=== PATIENT | male | born 1955 | race Caucasian/White ===

== ENCOUNTER 2016-11-11 11:05 | Inpatient (IN) | payer OTHER ==
--- NOTE | ~2016-11-11 | HP ---
History And Physical [place] [id number] [facility] [place]. [address] NAME: WALT STEVENSON : 53 STATUS : ADM IN PAT#: [id number] AGE: 61 ADM/REG DATE : 11/11/16 MR#: [id number] REPORT SERV DATE: 11/11/16 DICTATED BY: MINDA WELLER DATE: 11/11/16 REPORT STATUS : Draft TRANSCRIBED BY: MODL DATE: 11/11/16 DATE OF ADMISSION: 11/11/2016 ATTENDING PHYSICIAN: Dr. Butler. EXAMINING PHYSICIAN: Minda Weller M.D. REASON FOR ADMISSION: TIA, symptoms of right facial numbness, right hand numbness, which may be fluctuating over the last two years, acute shuffling of gait, confusion, and dysarthria earlier. The patient was seen in the emergency room by Dr. Restrepo, the neurologist, who felt tPA was not indicated. She recommended admission for observation; however, the patient does have some significant cerebrovascular disease, was recently referred to Dr. Velasquez Lilly for possible arterial endarterectomy. He was referred by Dr. Cortez, online marketing strategist with diagnostic cardiology. He has not actually seen her; however, he has had some progression of disease from 60% occlusion to a higher percentage of occlusion based on the ultrasounds that were done at [facility]. He also has a cardiomyopathy and was recently hospitalized, worked up for cardiac catheterization at [facility] by Dr. Bustos last week. Three new medications were started by Dr. Bustos including lisinopril, hydrochlorothiazide, and Plavix. Today, the patient had trouble walking with shuffling his gait, increasing dysarthria, worsen than before, numbness on the right side of his face and right side of the arm. He also has a headache that is new. He has some old right upper quadrant pain. This has been going on for the last two to three weeks. I do not know if he has been evaluated or not at previous hospitalizations at [facility]. PAST MEDICAL HISTORY: He has been hospitalized at [facility] three times in the last year, once at [facility], and this is first time here at [facility] for similar TIAs. HOME MEDICATIONS: Include the following: Aspirin 81 mg p.o. daily, atorvastatin 40 mg p.o. daily, carvedilol 12.5 mg p.o. b.i.d., clopidogrel 75 mg p.o. daily, gabapentin 400 mg p.o. b.i.d., hydrochlorothiazide 25 mg p.o. daily, isosorbide mononitrate 60 mg 1 daily, lisinopril 40 mg p.o. daily, potassium chloride SR 10 mEq p.o. daily, and fish oil 1 g b.i.d. ALLERGIES: HE CLAIMS ALLERGIES TO THE FOLLOWING MEDICATION: MORPHINE, CHOCOLATE FLAVORED MILK AND AN ADVERSE REACTION TO CODEINE IN THE PAST WELL. SOCIAL HISTORY: for seven years with present . She is from [place], [place]. He retired from the [employer] in [place], [place], and wanted to move out of [place]. He was risen from [place]. He gave up smoking about a year ago. He was a heavy drinker in the past, but has not had with an occasional beer over the last year or so. History And Physical [address] [place]. [address] NAME: WALT STEVENSON : 53 STATUS : ADM IN [facility]#: [id number] AGE: 61 ADM/REG DATE : 11/11/16 MR#: [id number] REPORT SERV DATE: 11/11/16 DICTATED BY: MINDA WELLER DATE: 11/11/16 REPORT STATUS : Draft TRANSCRIBED BY: DANIKA DATE: 11/11/16 FAMILY HISTORY: He has one grown son by previous marriage. He was from previous marriage. Strokes run in all the family on his mother side and his aunts; uncle's mothers had strokes as well. REVIEW OF SYSTEMS: He has no chest pain. He does have right upper quadrant abdominal pain, now worse with eating, but somewhat worsened with movement. He has numbness in the right side. He is unable to ascertain hot and cold and he uses left side for that, though he had a stroke affecting the left side. He has seizure disorder and is on the gabapentin for the seizures now, that occurred after the stroke two years ago. He has had no fever, chills, night sweats, melena, hematemesis, nausea, vomiting, or diarrhea. He does have unilateral weakness on the left side, but he is functional with it. He is mostly right-handed. He has had no recent fits, seizures, convulsions, unilateral weakness, nausea, vomiting, or diarrhea. The remainder of the review of systems is negative. PHYSICAL EXAMINATION: VITAL SIGNS: His blood pressure initially was 117/70 with a heart rate of 68, respiratory rate 16, oxygen saturation 92%, afebrile. HEENT: EOMI. Sclerae clear. Conjunctivae pink. NECK: No bruit. No thyromegaly. No JVD. CHEST: Clear to A and P. Tongue midline. No deviation or tremor or fasciculations. His speech is somewhat dysarthric. He does have some trouble finding words. HEART: Regular S1, S2 without murmur, gallop, or click. ABDOMEN: Soft, nontender. Bowel sounds positive. No HSM. EXTREMITIES: No edema. Distal pulses are palpable to the dorsalis pedis and posterior tibial. NEUROLOGIC: He withdraws to plantar stimulation. He has increased reflexia on the left knee jerk. There is negative Leni reflex in the left hand. DTRs are not elicitable in the left upper extremity with a blood pressure cuff in place. SKIN: Without rash, ecchymosis, or bruising. LYMPHATICS: There is no adenopathy palpable. LABORATORY DATA: 1. Portable chest x-ray showed no acute process. The CTA of the neck was done that showed no acute artifact or hemorrhage on the intracranial side. There is an old left temporal lobe infarct. There is occlusion of the left internal carotid artery 1 cm distal to its origin. He has had a prior endarterectomy on the left side with moderate stenosis of the common carotid artery at the margin of the left endarterectomy (patient does not give a history of previous carotid endarterectomy). He has calcific atherosclerotic plaque and high-grade stenosis of the right internal carotid artery. This is estimated to be greater than 90%. The external carotid arteries, vertebrals are patent. He has calcified atherosclerotic plaque of the right carotid siphon with stenosis of 50-70% with reconstitution of distal left carotid siphon from collateral flow, right to left. The anterior cerebral arteries and posterior cerebral arteries History And Physical [address] [place] [facility] [place] [address] NAME: WALT STEVENSON : 53 STATUS : ADM IN PAT#: [id number] AGE: 61 ADM/REG DATE : 11/11/16 MR#: [id number] REPORT SERV DATE: 11/11/16 DICTATED BY: MINDA WELLER DATE: 11/11/16 REPORT STATUS : Draft TRANSCRIBED BY: DANIKA DATE: 11/11/16 appear to be patent as well. 2. CT scan of the brain with stroke protocol shows old infarct in the left temporal lobe with chronic deep white matter disease and no evidence of acute infarct or hemorrhage. He was typed and screened with A positive blood. He has a hemoglobin of 13.4, hematocrit 39.9, platelet count 217,000, and INR 1.0. His CMP showed a sodium of 141, potassium 3.6, creatinine 1.2, BUN 18, glucose 153, and troponin 0.03. Liver tests were normal. His glucose is 151 on initial admission. ASSESSMENT: 1. Cerebrovascular disease appears to be significant. Previous carotid endarterectomy from x-ray on the left side with a significant stenosis greater than 90% on the right side. Dr. Lilly was consulted for vascular surgical intervention. The patient's symptoms are on the right side with facial numbness and right hand numbness. I am going to go ahead and start heparin. He does have a cardiomyopathy as well. He may have some sort of embolic phenomenon that is aggravating this. We will consult Dr. Bustos regarding this. 2. Cardiomyopathy, followed by Dr. Bustos with recent cardiac catheterization. 3. Dysarthria, headache, right-sided facial numbness and shuffling gait, sign and symptom complex suspicious for acute neurologic event now with known significant cerebrovascular disease. 4. Remote cerebrovascular accident with left hemiparesis. Appears to have left temporal involvement in the past with deep white matter disease. 5. Headache. 6. Right upper quadrant abdominal pain, three weeks' duration without nausea and vomiting. Consider ultrasound of the gallbladder at some point. 7. Seizures, on Neurontin after the stroke. 8. Ischemic cardiomyopathy. 9. History of hypertension. PLAN: 1. I have discussed with the patient any advanced directives he may have, initially he did not want to have aggressive heroic supportive therapy in the event of a natural . He will allow that on second thought now. So, the patient is a full code. We will admit him to [address] [place] [address]. There is no ICU beds available. Dr. Restrepo's recommendations are not available at this time. She will be consulted as well as Dr. Lilly and Dr. Bustos. 2. Starting heparin will allow permissive hypertension to let the blood pressure be above 130-140. He was recently started on lisinopril. We may need to withhold this as the low blood pressure may be having a perfusion problem causing the signs and symptoms. He also had Dr. Cortez increased his isosorbide mononitrate to 30-60 mg daily yesterday. 3. Incomplete database. We will request charts from [facility] as this is his first interaction here at [facility]. DB/MODL History And Physical [address] [place]. [address] NAME: WALT STEVENSON : 53 STATUS : ADM IN PAT#: [id number] AGE: 61 ADM/REG DATE : 11/11/16 MR#: [id number] REPORT SERV DATE: 11/11/16 DICTATED BY: MINDA WELLER DATE: 11/11/16 REPORT STATUS : Draft TRANSCRIBED BY: DANIKA DATE: 11/11/16 Minda Weller M.D. / [id number] CC: Mariposa Zhong M.D. Dannis Hood Jr., M.D.
--- NOTE | ~2016-11-11 | OP ---
Record Of Operation [facility] [address] [place]. [address] NAME: WALT STEVENSON : 53 STATUS : ADM IN PAT#: [id number] AGE: 61 ADM/REG DATE : 11/11/16 MR#: [id number] REPORT SERV DATE: 11/16/16 DICTATED BY: JONATHAN TOLEDO DATE: 11/15/16 REPORT STATUS : Draft TRANSCRIBED BY: MODL DATE: 11/15/16 DATE OF PROCEDURE: 11/15/2016 PREOPERATIVE DIAGNOSIS: High-grade right carotid stenosis with stroke-type symptoms. POSTOPERATIVE DIAGNOSIS: High-grade right carotid stenosis with stroke-type symptoms. PROCEDURE: Right carotid endarterectomy. SURGEON: Jonathan Toledo M.D. ASSISTANTS: Riana and Rdaha. ANESTHESIA: General. COMPLICATIONS: None. BLOOD LOSS: 100. HISTORY: The patient is a 61-year-old male, who presented with stroke-type symptoms. He was noted to have chronic occlusion of his left internal carotid artery, high-grade stenosis of the right internal carotid artery. Based on this, it was felt to benefit from right carotid endarterectomy. This was discussed in detail with the patient and family expressed understanding and desired to proceed. DESCRIPTION OF PROCEDURE: The patient was taken to the operating room and placed in the supine position. He was given general anesthesia without complications. Roll was placed under his shoulders. Head was turned to the left. An incision was created on the anterior border of the sternocleidomastoid muscle taking care to be more than one fingerbreadth away from the angle of the mandible. Bovie cautery was used to dissect through subcutaneous tissues and platysma. The external jugular vein was identified and ligated with silk ties and divided. Dissection was continued on the anterior border of the sternocleidomastoid muscle exposing the internal jugular vein. The common facial vein was identified. This was ligated with 2-0 silk ties and divided. Continued dissection was performed. The vagus nerve was identified and preserved. The common carotid artery was identified, freed circumferentially, and isolated with a vessel loop. The patient was given 3000 units of heparin as he was on a heparin drip until he arrived in the operating room. Continued dissection was performed to free the external carotid artery circumferentially. The internal carotid artery was freed circumferentially beyond the area of disease and isolated with a Vesseloop as well. After more than three minutes of heparinization, the internal carotid artery was controlled with a vessel loop followed by the common carotid artery and external carotid artery. An 11 blade was used to create an arteriotomy and was extended longitudinally onto the internal carotid artery beyond the area of disease. A 12 shunt was placed into the internal carotid artery. Once back bleeding was noted, this was placed into the common carotid artery restoring flow of the brain. Endarterectomy was performed in a standard fashion with feathering of the proximal and distal end points and eversion Record Of Operation [facility] [address] [facility] [place]. [address] NAME: WALT STEVENSON : 53 STATUS : ADM IN PAT#: [id number] AGE: 61 ADM/REG DATE : 11/11/16 MR#: [id number] REPORT SERV DATE: 11/16/16 DICTATED BY: JONATHAN TOLEDO DATE: 11/15/16 REPORT STATUS : Draft TRANSCRIBED BY: DANIKA DATE: 11/15/16 endarterectomy on the external carotid artery. The endarterectomy site was copiously irrigated, all loose debris was removed. Once this was felt to be adequate, the arteriotomy was closed using 8 x 80 bovine pericardial patch and running 6-0 Prolene suture. Prior to completion, the shunt was pulled from the lateral aspect. The internal and external carotid arteries were back bled. The common carotid artery was flushed. The endarterectomy site was copiously irrigated. The closure was completed and flow was restored first to the external carotid artery, then after more than five heartbeats to the internal carotid artery. Bleeding points along the closure were controlled with additional 6-0 Prolene suture. There were normal Doppler signals in the common carotid, external carotid, and internal carotid arteries. Once hemostasis was assured, fibrillar was placed over the patch closure. The deep tissues and platysma were closed with 2-0 Vicryl suture. The skin was closed with 4-0 Monocryl suture and Dermabond dressing applied. The patient tolerated the procedure well. He will be extubated in the operating room and if neurologically intact, taken to the recovery room for continued care. GAMALIEL/DANIKA Jonathan Toledo M.D. / [id number] CC: Alfonso Gooden M.D.
--- NOTE | ~2016-11-11 | CN ---
Consultation Report [facility] [address] [place]. [address] NAME: WALT STEVENSON : 53 STATUS : ADM IN PAT#: [id number] AGE: 61 ADM/REG DATE : 11/11/16 MR#: [id number] REPORT SERV DATE: 11/12/16 DICTATED BY: GABRIEL BUSTOS JR. DATE: 11/12/16 REPORT STATUS : Draft TRANSCRIBED BY: DANIKA DATE: 11/12/16 CONSULTATION DATE OF CONSULTATION: REFERRING PHYSICANS: Dr. Alfonso Gooden and Dr. Ozzie Whitaker. INDICATION FOR CONSULTATION: History of hypertensive cardiomyopathy evaluation prior to vascular surgical procedure, history of TIA. HISTORY OF PRESENT ILLNESS: The patient is a 61-year-old white male, recently admitted for transient ischemic attacks, found to have an elevated troponin, for which nuclear stress test was negative. However, the patient developed substernal chest pain, for which he was transferred to [facility], cardiac catheterization was performed at that time, for which the patient was found to have non-flow limiting epicardial coronary artery disease with luminal irregularities only, moderate LV systolic dysfunction with ejection fraction estimated at 38% to 41%, hypertensive cardiomyopathy. He was medically managed and cleared for vascular procedure, however he re-presented with TIA like symptoms and now is being evaluated for carotid endarterectomy. He has had no recent anginal symptoms, although he is mildly to moderately hypertensive. Recent echo was notable for an ejection fraction of 41% with mild regional wall motion abnormalities, which were not noted on ventriculography. The patient this morning denies chest pain, denies angina, and has had no overt dyspnea. There are no overt symptoms of orthopnea, PND, pedal edema. He is supine in the bed and otherwise appears well. ALLERGIES: THOSE INCLUDING CODEINE AND MORPHINE. MEDICATIONS AT HOME: Aspirin 81 mg daily, atorvastatin 40 mg at bedtime, carvedilol 12.5 mg p.o. b.i.d., clopidogrel 75 mg daily, Neurontin 400 mg b.i.d., hydrochlorothiazide 25 mg daily, Imdur 60 mg daily, Prinivil 40 mg daily, potassium 10 mEq daily, fish oil daily. PAST MEDICAL HISTORY: Notable for history of hypertensive cardiomyopathy with no flow limiting epicardial coronary artery disease as above, history of dyslipidemia, hypertension, seizure disorder, history of prior CVA with right hand residual hypoesthesia, history of total occlusion of the left internal carotid, history of occlusion of the right subclavian, history of unspecified psychiatric disorder. PAST SURGICAL HISTORY: Notable for prior cardiac catheterization. SOCIAL HISTORY: Notable for absence of current known tobacco or ethanol use. Although, he did smoke cigarettes about a year ago. He denies any illicit drug use. Consultation Report [address] [place]. [address] NAME: WALT STEVENSON : 53 STATUS : ADM IN PAT#: [id number] AGE: 61 ADM/REG DATE : 11/11/16 MR#: [id number] REPORT SERV DATE: 11/12/16 DICTATED BY: GABRIEL BUSTOS JR. DATE: 11/12/16 REPORT STATUS : Draft TRANSCRIBED BY: DANIKA DATE: 11/12/16 FAMILY HISTORY: Notable for heart disease and CVA. PHYSICAL EXAMINATION: VITAL SIGNS: Blood pressure is 185/72, pulse is 70 and regular, respirations 14. The patient is afebrile. HEENT: Unremarkable. NECK: Supple without jugular venous distention or carotid bruits. CARDIOVASCULAR SYSTEM: Regular rhythm. LUNGS: Clear. ABDOMEN: Benign without hepatomegaly. EXTREMITIES: 1+ with no pedal edema. NEUROLOGIC: He is grossly intact. LABORATORY DATA: EKG is notable for sinus rhythm with ventricular rate of 60 beats per minute with LVH and lateral T-wave inversion. Other laboratories are H and H of 13.4 and 39.9, white count of 7.8, and platelet count of 217,000. Sodium 141, potassium 3.6, chloride of 103, CO2 of 28, BUN 18, creatinine 1.2, glucose of 153. Liver enzymes are negative. Chest x-ray reported within acceptable limits. IMPRESSION: 1. A 61-year-old white male with known atherosclerotic cerebrovascular disease, prior cerebrovascular accident, admitted with transient ischemic attack, cerebrovascular accident symptoms. 2. Hypertensive cardiomyopathy. 3. History of prior tobacco use, history of occasional ethanol use. 4. Known chronic EKG changes as noted above. PLANS AND RECOMMENDATIONS: 1. Current cardiac condition satisfactory for planned procedure, may withhold aspirin and Plavix if necessary. Would continue heparin at this time. Would continue electrolyte protocol and monitor fluid intake. 2. We will follow along with you if needed. JEAN-CLAUDE/DANIKA Gabriel Bustos Jr., M.D. / [id number] CC: Mariposa Zhong M.D.
--- NOTE | ~2016-11-11 | DS ---
Discharge Summary [facility] [address] [place]. [address] NAME: WALT STEVENSON : 53 STATUS : DIS IN PAT#: [id number] AGE: 61 ADM/REG DATE : 11/11/16 MR#: [id number] REPORT SERV DATE: 11/22/16 DICTATED BY: NOEMÍ BANKS DATE: 11/19/16 REPORT STATUS : Draft TRANSCRIBED BY: MODL DATE: 11/19/16 ADMISSION DATE: 11/11/2016 DISCHARGE DATE: 11/19/2016 CONSULTANTS: Dr. Marielle Restrepo and Dr. Jennifer Tello, Neurology; Dr. Nadine Bustos, Cardiology; Dr. Jonathan Toledo, Vascular Surgery. DISCHARGE DIAGNOSES: 1. Transient ischemic attack versus amyloid angiopathy episodes. 2. Acute kidney injury. 3. Severe peripheral arterial disease with totally occluded left carotid and 90% right internal carotid and previous axillary to axillary bypass. 4. 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 5. Nonischemic chronic congestive heart failure with ejection fraction 38%. 6. Hypertension. 7. Extended-spectrum beta-lactamase Escherichia coli urinary tract infection. 8. Suspected sleep apnea. 9. Previous smoker. 10.Previous heavy alcohol use. 11.Transient elevation of liver enzymes, resolved. 12.Mild normocytic anemia. 13.Seasonal allergies. HISTORY: This patient presented to the hospital at [facility] with complaints of numbness that was involving the right face, right hand, and right leg. He said he had prior stroke, which had left him with some right-sided numbness and headache that were just a bit different than what he had before. As a result of this, he presented to the emergency room at [facility]. Neurologist, Dr. Restrepo was called to see the patient. She did not feel he was a candidate for tPA and he was referred to our team for inpatient care. Imaging initially with a stroke protocol revealed old infarct left temporal lobe, mild atrophy, and chronic white matter ischemic changes. No evidence for an acute stroke. CTA of the neck and brain on 11/11/2016 revealed no acute infarction or hemorrhage, old left temporal lobe infarction, occlusion of the left internal carotid artery 1 cm distal to the origin. The patient had had previous endarterectomy on the left. There was also moderate stenosis of the common carotid at the inferior margin of the endarterectomy site. There was atherosclerotic plaque with a 90% stenosis of the right internal carotid artery. External carotid arteries and vertebral arteries were patent. There was a plaque of the right carotid siphon with an estimated 50% to 70% stenosis with reconstruction of the distal left carotid siphon from collateral flow. The anterior cerebral arteries, middle cerebral arteries, posterior cerebral arteries, and basilar arteries were patent. Chest x-ray on admission, no acute abnormality. The patient was admitted with the TIA stroke order set. He was seen by Cardiology, Dr. Bustos. Troponins were normal. Dr. Bustos's notes indicate the patient had recent hospitalization at [facility] and he brought copies of records showing a catheterization on 10/08/2016 at [facility], minor nonobstructive coronary Discharge Summary [address] [address] NAME: WALT STEEVNSON : 53 STATUS : DIS IN PAT#: [id number] AGE: 61 ADM/REG DATE : 11/11/16 MR#: [id number] REPORT SERV DATE: 11/22/16 DICTATED BY: NOEMÍ BANKS DATE: 11/19/16 REPORT STATUS : Draft TRANSCRIBED BY: DANIKA DATE: 11/19/16 artery disease, but left ventricular ejection fraction 38%. On 11/13/2016, the patient was complaining of worsening headache and numbness. A rapid response was called. Dr. Restrepo saw the patient again, and the patient had brain CT protocol at that time showing no acute changes. Also had orders for MRI of the brain later on 11/16/2016, which revealed extensive deep white matter changes bilaterally with microbleeds and cortical infarction in the left middle cerebral artery suggesting amyloid angiopathy. No acute infarction. The patient was seen by vascular surgeon, Dr. Jonathan Toledo, who felt he needed a right carotid endarterectomy. This was performed on 11/15/2016. On 11/16/2016, the patient complained of new left-sided numbness, some slowing of mentation and language. No focal deficit motor suarez was noted. Imaging done at that time included a repeat CTA of the brain showing surgical changes on the right side with recent right carotid endarterectomy. The right carotid artery was patent with no significant stenosis. There was a chronic occlusion of the left internal carotid. MRI of the brain at that time revealed no acute infarction. 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 No CT evidence of pulmonary embolism. No thoracic aortic aneurysm or dissection was noted. Neurology thought that possibly the patient's episodes, which continued intermittently of left-sided numbness might be related to amyloid neurologic spells, so they have begun him on Keppra for this. Because of the concern that he has underlying amyloid angiopathy, we have decided to try to use the least amount of anticoagulation and least amount of anti-platelet agent, but still to try to help reduce risk of ischemic stroke, therefore, we are going to just go with low- dose aspirin and no Plavix. At the time of discharge, he still has the numbness on that left foot, left side of his face, little bit on his left arm. He is ambulatory, swallowing well, speaking well. Physical Therapy felt he did not need any further interventions. Neurology recommended the Keppra and follow up with [facility] here in [facility]. Vascular, Dr. Toledo wants to see him in two weeks. DISCHARGE MEDICATIONS: Aspirin 81 mg two tablets daily, Lipitor 40 mg at bedtime, Coreg 12.5 mg b.i.d., Plavix has been stopped, Flonase nasal spray daily, gabapentin 400 mg p.o. b.i.d., Imdur 60 mg daily, Keppra 750 mg p.o. b.i.d., Claritin 10 mg daily, Promega over the counter twice a day, Tylenol 650 q.6 hours p.r.n. pain, [place] 5/325 q.4 hours p.r.n. pain #10 prescribed no refill, KCl 10 mEq daily, hydrochlorothiazide half of a 25 mg tablet daily, Norvasc 5 mg daily for his blood pressure and we are stopping his lisinopril. Holding the lisinopril at this point because he did have acute kidney injury while he was here. The patient did have some dysuria and urinalysis was abnormal suggesting infection. His urine cultures grew out ESBL E coli. The patient was treated with oral fosfomycin and symptoms improved. This will need longitudinal followup. Discharge Summary [facility] [address] [place]. [address] NAME: WALT STEVENSON : 53 STATUS : DIS IN PAT#: [id number] AGE: 61 ADM/REG DATE : 11/11/16 MR#: [id number] REPORT SERV DATE: 11/22/16 DICTATED BY: NOEMÍ BANKS DATE: 11/19/16 REPORT STATUS : Draft TRANSCRIBED BY: MODL DATE: 11/19/16 He also had some seasonal allergies with sneezing, coughing that is better with Flonase and Claritin. The patient has moved recently to the area. He states his has chosen a PCP for him, he just does not know the name, but he will follow up with that PCP within the next week or so. He is to see Vascular Surgery, Dr. Jonathan Toledo in two weeks and [facility] in four to six weeks[address]. Nadine Bustos of Cardiology as per prior recommendations. I spent 39 minutes today with the patient and with discharge planning. RSG/DANIKA Noemí Banks M.D. / [id number] CC: Mariposa Stratton M.D. Dannis Hood Jr., M.D. [facility]
--- NOTE | ~2016-11-11 | CN ---
Consultation Report [facility] [address] [place]. [address] NAME: WALT STEVENSON : 53 STATUS : ADM IN PAT#: [id number] AGE: 61 ADM/REG DATE : 11/11/16 MR#: [id number] REPORT SERV DATE: 11/11/16 DICTATED BY: MARIELLE RESTREPO DATE: 11/11/16 REPORT STATUS : Draft TRANSCRIBED BY: DANIKA DATE: 11/11/16 NEUROLOGICAL EVALUATION DATE OF CONSULTATION: 11/11/2016 REASON FOR NEUROLOGICAL EVALUATION/CONSULTATION: Neurology evaluation, Code Stroke. LOCATION OF THE PATIENT: Emergency room, bed 3. HISTORY OF PRESENT ILLNESS: This is a 61-year-old white male, with known previous history of CVA, and history of left carotid endarterectomy, who presented to the emergency room 2-1/2 hours after onset of? right facial numbness which was intermittent, associated with a headache, and some as per patient "delay in speech." The patient was able to provide history without any difficulty in expressing himself. The patient appeared anxious stated that he has had strokes before and there is a strong family history of strokes on his mother's side. The patient had left carotid endarterectomy performed several years ago in [place], [place]. MEDICATIONS: The patient's current medications include aspirin 81 mg and Plavix 75 mg p.o. daily. FAMILY HISTORY: Significant history of coronary artery disease and stroke in patient's relatives on mother's side. SOCIAL HISTORY: The patient stopped smoking and drinking alcohol approximately a year ago. He is . He has two children. ALLERGIES: CODEINE AND MORPHINE. REVIEW OF SYSTEMS: The patient stated that he has had intermittent headaches since his stroke. The patient also as per patient's snores a great deal and has daytime somnolence. In the past, the patient was diagnosed with obstructive sleep apnea, however, stopped using his CPAP and has been noncompliant. The rest of review of systems, the patient denied difficulty with his vision, chewing, or swallowing. Denied weakness or numbness involving his extremities. He stated that the right side of his face was tingling intermittently. The patient stated that he had to be helped to walk to the stretcher, however, as per nursing staff, the patient had no difficulty ambulating or transferring, as per my observation from the CT table to the stretcher. PHYSICAL EXAMINATION: GENERAL: The patient is well-developed, well-nourished, did not appear in acute distress. Mallampati class 3 to 4 airway. VITAL SIGNS: Show blood pressure of 118/60, pulse was 72 and regular, respirations 16, Consultation Report [facility] [address] [place]. [address] NAME: WALT STEVENSON : 53 STATUS : ADM IN PAT#: [id number] AGE: 61 ADM/REG DATE : 11/11/16 MR#: [id number] REPORT SERV DATE: 11/11/16 DICTATED BY: MARIELLE RESTREPO DATE: 11/11/16 REPORT STATUS : Draft TRANSCRIBED BY: DANIKA DATE: 11/11/16 temperature afebrile. HEAD AND NECK: Showed him to be normocephalic. There was no evidence of trauma. Auscultation of the neck showed questionable bruit on the right. The patient is status post left carotid endarterectomy. HEART: Auscultation of the heart regular S1 and S2. I did not appreciate any murmurs or rubs. ABDOMEN: Soft and nontender. EXTREMITIES: Showed no clubbing or cyanosis. There is no peripheral edema. SKIN: Clear. NEUROLOGIC EXAMINATION: The patient was alert, oriented to self, time, and place. He was able to provide history without any difficulty. Appeared anxious. Complained of a headache. Stated that he was allergic to morphine and codeine, however can take Demerol for his headache. The patient's speech was fluent. There was no evidence of aphasia or dysarthria. Thought content and mood were appropriate. Cranial nerve examination 2 through 12: Visual gomez on confrontation showed no evidence of visual field cuts and were normal. Funduscopic exam show no evidence of papilledema or hemorrhages. Extraocular movements were full. There was no nystagmus. No limitation of upward or downward gaze was noted. Motor exam: Muscle bulk and tone was normal. Strength was 5/5 throughout. Deep tender reflexes were symmetrical 1/2. Cerebellar exam on eotams-cc-arqs, fhhr-yx-aorj, and rapid alternating movements appeared within normal. LABORATORY AND DIAGNOSTIC DATA: CBC with differential, WBC count 7.8, hemoglobin 13.4, hematocrit 39.9, platelet count 217,000, normal differential, PTT 33.7. Comprehensive metabolic; sodium 141, potassium 3.6, chloride 103, BUN 18, creatinine 1.2, GFR 64, glucose 153, troponin 0.03. Glucose on admission was 151. CT scan of the head on admission was reviewed and showed evidence of the left MCA distribution, area of probable old stroke involving temporal region, insular cortex of the temporal lobe. There was no evidence of intraparenchymal hemorrhage. The rest of the study showed questionable subacute infarct in the right MCA territory, which appeared to be small, and subacute versus chronic. CTA of the neck and brain showed no acute infarct or hemorrhage, old left temporal lobe infarct, occlusion of the left MCA 1 cm distal to its origin. The patient had prior endarterectomy on the left. There is a moderate stenosis of the CCA at the inferior margin of the endarterectomy site. 1. Calcified atherosclerotic plaque with high-grade stenosis of the right ICA that is estimated to be greater than 90%. 2. External carotid arteries and vertebral arteries were patent. 3. Calcified atherosclerotic plaque of the right carotid siphon with an estimated stenosis of 50% to 70%. There is reconstruction of the distal left carotid siphon from collateral flow. 4. The anterior cerebral arteries, middle cerebral arteries, posterior cerebral arteries, and basilar arteries were patent. The patient's NIH stroke scale calculated score was 0. IMPRESSION: 1. Not clear whether the patient is having stroke in evolution versus transient ischemic Consultation Report [address] [place]. [address] NAME: WALT STEVENSON : 53 STATUS : ADM IN [facility]#: [id number] AGE: 61 ADM/REG DATE : 11/11/16 MR#: [id number] REPORT SERV DATE: 11/11/16 DICTATED BY: MARIELLE RESTREPO DATE: 11/11/16 REPORT STATUS : Draft TRANSCRIBED BY: MODL DATE: 11/11/16 attack. The patient has markedly increased risk of a stroke, with 90% occluded right internal carotid artery. However, his symptoms pertain to the left MCA perhaps coming from the area of damage noted on the CT of the head. The patient may have sensory seizures as a result of old stroke affecting the left temporal lobe. We would recommend not to use tPA in view of very minor symptoms that are not clear, cracked, and suggestive of ongoing stroke, and because the large area of encephalomalacia was seen in the left MCA territory, that would constitute an area where the patient potentially can bleed into. 2. We would recommend monitoring the patient in the IMCU with continuous neuro checks, vital signs, and NIH scale stroke evaluation every one to two hours. If patient's symptoms worsen then the patient needs to be transferred to a facility that can urgently address his symptoms, however, for now we will discuss with our vascular surgery person on-call and request a consultation for this patient. Continue aspirin and Plavix. Increase aspirin to 325 mg p.o. daily, statins, stroke education, fall prevention, PT, OT, to evaluate the patient. The patient has signs and symptoms of obstructive sleep apnea. Mallampati class 3 to 4 airway which increases his risk of having obstructive sleep apnea. The patient should have re-evaluation and importance of using CPAP in patients who have obstructive sleep apnea discussed. The increased risk of stroke as a result of not treated sleep apnea was also stressed to the patient. Past history of tobacco use. The patient stop smoking a year ago. Significant arthrosclerotic disease, status post left endarterectomy. 3. We will monitor for any cardiac abnormalities. Echocardiogram and Cardiology consultation if needed. Continue telemetry. Continue stroke orders. Thank you for allowing us to participate in this patient's care. FELISA/DANIKA Marielle Restrepo MD / [id number] CC: Alfonso Gooden M.D.
[2016-11-11 11:33] LABS: BASOPHILS 0.3 %; BASOPHILS ABSOLUTE 0.02 10/3/uL (0.0-0.16); EOSINOPHILS 1.8 %; EOSINOPHILS ABSOLUTE 0.14 10/3/uL (0.0-0.53); ER CBC TAT 0 Hrs 03 Mins; HEMATOCRIT 39.9 % (40.0-51.0); HEMOGLOBIN 13.4 g/dL (13.6-17.8); IMMATURE GRANULOCYTES 0.3 %; IMMATURE GRANULOCYTES ABSOLUTE 0.02 10/3/uL (0.0-0.11); LYMPHOCYTES 19.1 %; LYMPHOCYTES ABSOLUTE 1.49 10/3/uL (0.67-4.30); MEAN CORPUS HGB CONC 33.6 g/dL (32.0-36.0); MEAN CORPUSCULAR HEMOGLOB 28.4 pg (26.0-34.0); MEAN CORPUSCULAR VOLUME 84.5 fL (80-100); MEAN PLATELET VOLUME 10.5 fL (9.2-13.0); MONOCYTES 5.1 %; NEUTROPHILS 73.4 %; NEUTROPHILS ABSOLUTE 5.75 10/3/uL (2.02-8.40); PLATELET COUNT 217 10/3/uL (150-400); RBC DISTRIBUTION WIDTH 13.1 % (12.0-16.0); RED CELL COUNT 4.72 10/6/uL (4.7-6.1); WHITE BLOOD CELLS 7.8 10/3/uL (4.5-10.5)
[2016-11-11 11:34] LABS: MANUAL DIFF NO %
[2016-11-11 11:50] LABS: A/G RATIO 1.3 (0.7-1.9); ALBUMIN 3.9 G/DL (3.5-5.0); ALKALINE PHOSPHATASE 73 U/L (45-117); BUN (BLOOD UREA NITROGEN) 18 MG/DL (6-23); CALCIUM, SERUM 9.6 MG/DL (8.5-10.4); CHLORIDE, SERUM 103 MMOL/L (96-112); CO2 (CARBON DIOXIDE) 28 MMOL/L (24-34); GFR AFRICAN AMERICAN 75 ML/MIN (>=60); GFR NON AFRICAN AMERICAN 64 ML/MIN (>=60); GLOBULIN 3.1 G/DL (2.5-4.1); GLUCOSE, SERUM 153 MG/DL (60-99); POTASSIUM, SERUM 3.6 MMOL/L (3.5-5.3); SGOT(AST) 13 U/L (5-40); SGPT(ALT) 21 U/L (5-65); SODIUM, SERUM 141 MMOL/L (135-148); TOTAL BILIRUBIN 0.5 MG/DL (0-1.2); TROPONIN I 0.03 NG/ML (<0.05)
[2016-11-11 11:56] LABS: INTERNATIONAL NORMAL RATI 1.1 UNITS (-); PARTIAL THROMBO TIME 33.7 SEC (22.5-37.2); PROTIME (NOT ORD) 13.8 SEC (12.0-14.5)
[2016-11-11] MEDS ORDERED: KDUR10 PO (12:07)
[2016-11-11] MEDS ORDERED: NEUR400 PO (12:07)
[2016-11-11] MEDS ORDERED: IMDUR60 PO (12:07)
[2016-11-11] MEDS ORDERED: LIPITOR40 PO (12:07)
[2016-11-11] MEDS ORDERED: ASAB PO (12:07)
[2016-11-11] MEDS ORDERED: PLAVIX PO (12:08)
[2016-11-11] MEDS ORDERED: COREG12 PO (12:08)
[2016-11-11] MEDS ORDERED: HCTZ12.5 (12:08)
[2016-11-11] MEDS ORDERED: LISINOPRIL40 MG PO (12:08)
[2016-11-11] MEDS ORDERED: FISH OIL PO (12:09)
[2016-11-11 16:41] LABS: CHOL/HDL RATIO(NOT ORDER) 4.2 (0-5); CHOLESTEROL 185 MG/DL (< 200); HDL CHOLESTEROL 44 MG/DL (> 39); LDL CHOLESTEROL 107 MG/DL (< 130); NON-HDL CHOLESTEROL 141 MG/DL (< 160); TRIGLYCERIDE 173 MG/DL (< 150)
[2016-11-11 21:21] LABS: CPK 168 U/L (0-200); TROPONIN I 0.03 NG/ML (<0.05)
[2016-11-11 21:24] LABS: CK-MB 3.7 NG/ML
[2016-11-11 22:47] LABS: ASCORBIC ACID (UR NOT ORDER) NEG (NEG); BILIRUBIN, URINE NEGATIVE (NEG); KETONE, URINE NEGATIVE (NEG); LEUKOCYTE ESTERASE(NOT OR LARGE (NEG); WBC (NOT ORDERED) (RFLEX) 86 (0-5)
[2016-11-12 06:06] LABS: TROPONIN I 0.03 NG/ML (<0.05)
[2016-11-12 06:09] LABS: CK-MB 3.3 NG/ML; CPK 148 U/L (0-200)
[2016-11-12 12:03] LABS: CK-MB 3.2 NG/ML; CPK 151 U/L (0-200); TROPONIN I 0.03 NG/ML (<0.05)
[2016-11-12 12:16] LABS: ASCORBIC ACID (UR NOT ORDER) NEG (NEG); BILIRUBIN, URINE NEGATIVE (NEG); KETONE, URINE NEGATIVE (NEG); LEUKOCYTE ESTERASE(NOT OR LARGE (NEG); WBC (NOT ORDERED) (RFLEX) 75 (0-5)
[2016-11-12 19:55] LABS: CPK 139 U/L (0-200); TROPONIN I 0.03 NG/ML (<0.05)
[2016-11-12 19:58] LABS: CK-MB 2.7 NG/ML
[2016-11-13 06:42] LABS: BASOPHILS 0.3 %; BASOPHILS ABSOLUTE 0.02 10/3/uL (0.0-0.16); HEMOGLOBIN 12.4 g/dL (13.6-17.8); IMMATURE GRANULOCYTES 0.2 %; IMMATURE GRANULOCYTES ABSOLUTE 0.01 10/3/uL (0.0-0.11); LYMPHOCYTES 28.5 %; LYMPHOCYTES ABSOLUTE 1.89 10/3/uL (0.67-4.30); MEAN CORPUS HGB CONC 32.6 g/dL (32.0-36.0); MEAN CORPUSCULAR HEMOGLOB 27.6 pg (26.0-34.0); MEAN CORPUSCULAR VOLUME 84.6 fL (80-100); MEAN PLATELET VOLUME 10.5 fL (9.2-13.0); MONOCYTES 8.3 %; MONOCYTES ABSOLUTE 0.55 10/3/uL (0.21-1.20); NEUTROPHILS 59.7 %; NEUTROPHILS ABSOLUTE 3.96 10/3/uL (2.02-8.40); PLATELET COUNT 199 10/3/uL (150-400); RBC DISTRIBUTION WIDTH 13.3 % (12.0-16.0); RED CELL COUNT 4.49 10/6/uL (4.7-6.1); WHITE BLOOD CELLS 6.6 10/3/uL (4.5-10.5)
[2016-11-13 06:48] LABS: BUN (BLOOD UREA NITROGEN) 17 MG/DL (6-23); CALCIUM, SERUM 8.9 MG/DL (8.5-10.4); CHLORIDE, SERUM 103 MMOL/L (96-112); CO2 (CARBON DIOXIDE) 29 MMOL/L (24-34); CREATININE 1.07 MG/DL (0.70-1.30); GFR AFRICAN AMERICAN 86 ML/MIN (>=60); GFR NON AFRICAN AMERICAN 74 ML/MIN (>=60); GLUCOSE, SERUM 106 MG/DL (60-99); POTASSIUM, SERUM 3.5 MMOL/L (3.5-5.3); SODIUM, SERUM 144 MMOL/L (135-148)
[2016-11-13 06:49] LABS: MANUAL DIFF NO %
[2016-11-13 06:52] LABS: INTERNATIONAL NORMAL RATI 1.1 UNITS (-)
[2016-11-13 13:54] LABS: BASOPHILS 0.4 %; BASOPHILS ABSOLUTE 0.02 10/3/uL (0.0-0.16); EOSINOPHILS 3.8 %; EOSINOPHILS ABSOLUTE 0.21 10/3/uL (0.0-0.53); HEMATOCRIT 37.2 % (40.0-51.0); HEMOGLOBIN 12.2 g/dL (13.6-17.8); IMMATURE GRANULOCYTES 0.2 %; IMMATURE GRANULOCYTES ABSOLUTE 0.01 10/3/uL (0.0-0.11); LYMPHOCYTES 32.6 %; LYMPHOCYTES ABSOLUTE 1.81 10/3/uL (0.67-4.30); MEAN CORPUS HGB CONC 32.8 g/dL (32.0-36.0); MEAN CORPUSCULAR HEMOGLOB 28.3 pg (26.0-34.0); MEAN CORPUSCULAR VOLUME 86.3 fL (80-100); MEAN PLATELET VOLUME 10.3 fL (9.2-13.0); MONOCYTES ABSOLUTE 0.39 10/3/uL (0.21-1.20); NEUTROPHILS ABSOLUTE 3.12 10/3/uL (2.02-8.40); PLATELET COUNT 198 10/3/uL (150-400); RBC DISTRIBUTION WIDTH 12.9 % (12.0-16.0); RED CELL COUNT 4.31 10/6/uL (4.7-6.1); WHITE BLOOD CELLS 5.6 10/3/uL (4.5-10.5)
[2016-11-13 13:58] LABS: MANUAL DIFF NO %
[2016-11-13 14:05] LABS: A/G RATIO 1.1 (0.7-1.9); ALBUMIN 3.2 G/DL (3.5-5.0); ALKALINE PHOSPHATASE 62 U/L (45-117); BUN (BLOOD UREA NITROGEN) 16 MG/DL (6-23); CALCIUM, SERUM 8.5 MG/DL (8.5-10.4); CHLORIDE, SERUM 102 MMOL/L (96-112); CO2 (CARBON DIOXIDE) 29 MMOL/L (24-34); GFR AFRICAN AMERICAN 75 ML/MIN (>=60); GFR NON AFRICAN AMERICAN 64 ML/MIN (>=60); GLOBULIN 2.9 G/DL (2.5-4.1); GLUCOSE, SERUM 126 MG/DL (60-99); POTASSIUM, SERUM 3.7 MMOL/L (3.5-5.3); SGOT(AST) 12 U/L (5-40); SGPT(ALT) 17 U/L (5-65); SODIUM, SERUM 142 MMOL/L (135-148); TOTAL BILIRUBIN 0.3 MG/DL (0-1.2); TOTAL PROTEIN 6.1 G/DL (6.0-8.5); TROPONIN I <0.02 NG/ML (<0.05)
[2016-11-13 14:07] LABS: INTERNATIONAL NORMAL RATI 1.1 UNITS (-); PROTIME (NOT ORD) 13.6 SEC (12.0-14.5)
[2016-11-13 14:08] LABS: PARTIAL THROMBO TIME 79.4 SEC (22.5-37.2)
[2016-11-14 02:45] LABS: BUN (BLOOD UREA NITROGEN) 16 MG/DL (6-23); CHLORIDE, SERUM 104 MMOL/L (96-112); CO2 (CARBON DIOXIDE) 30 MMOL/L (24-34); CREATININE 1.14 MG/DL (0.70-1.30); GFR AFRICAN AMERICAN 79 ML/MIN (>=60); GFR NON AFRICAN AMERICAN 69 ML/MIN (>=60); GLUCOSE, SERUM 109 MG/DL (60-99); POTASSIUM, SERUM 3.6 MMOL/L (3.5-5.3); SODIUM, SERUM 145 MMOL/L (135-148)
[2016-11-14 02:46] LABS: CALCIUM, SERUM 9.5 MG/DL (8.5-10.4)
[2016-11-15 10:01] LABS: HEMOGLOBIN 12.8 g/dL (13.6-17.8)
[2016-11-15 10:14] LABS: BUN (BLOOD UREA NITROGEN) 18 MG/DL (6-23); CALCIUM, SERUM 9.6 MG/DL (8.5-10.4); CHLORIDE, SERUM 104 MMOL/L (96-112); CO2 (CARBON DIOXIDE) 26 MMOL/L (24-34); CREATININE 1.48 MG/DL (0.70-1.30); GFR AFRICAN AMERICAN 58 ML/MIN (>=60); GFR NON AFRICAN AMERICAN 50 ML/MIN (>=60); GLUCOSE, SERUM 69 MG/DL (60-99); POTASSIUM, SERUM 4.1 MMOL/L (3.5-5.3); SODIUM, SERUM 142 MMOL/L (135-148)
[2016-11-15 19:03] LABS: TROPONIN I 0.03 NG/ML (<0.05)
[2016-11-15 19:05] LABS: CK-MB 1.9 NG/ML; CPK 93 U/L (0-200)
[2016-11-16 09:07] LABS: BASOPHILS 0.1 %; BASOPHILS ABSOLUTE 0.01 10/3/uL (0.0-0.16); EOSINOPHILS 3.6 %; EOSINOPHILS ABSOLUTE 0.24 10/3/uL (0.0-0.53); HEMOGLOBIN 12.3 g/dL (13.6-17.8); IMMATURE GRANULOCYTES 0.1 %; IMMATURE GRANULOCYTES ABSOLUTE 0.01 10/3/uL (0.0-0.11); LYMPHOCYTES 15.9 %; LYMPHOCYTES ABSOLUTE 1.07 10/3/uL (0.67-4.30); MANUAL DIFF NO %; MEAN CORPUS HGB CONC 32.4 g/dL (32.0-36.0); MEAN CORPUSCULAR HEMOGLOB 27.9 pg (26.0-34.0); MEAN CORPUSCULAR VOLUME 86.2 fL (80-100); MEAN PLATELET VOLUME 10.6 fL (9.2-13.0); MONOCYTES ABSOLUTE 0.54 10/3/uL (0.21-1.20); NEUTROPHILS 72.3 %; NEUTROPHILS ABSOLUTE 4.87 10/3/uL (2.02-8.40); PLATELET COUNT 189 10/3/uL (150-400); RBC DISTRIBUTION WIDTH 13.8 % (12.0-16.0); RED CELL COUNT 4.41 10/6/uL (4.7-6.1); WHITE BLOOD CELLS 6.7 10/3/uL (4.5-10.5)
[2016-11-16 09:13] LABS: INTERNATIONAL NORMAL RATI 1.1 UNITS (-); PARTIAL THROMBO TIME 33.9 SEC (22.5-37.2); PROTIME (NOT ORD) 14.3 SEC (12.0-14.5)
[2016-11-16 09:24] LABS: A/G RATIO 1.1 (0.7-1.9); ALBUMIN 3.4 G/DL (3.5-5.0); ALKALINE PHOSPHATASE 96 U/L (45-117); BUN (BLOOD UREA NITROGEN) 17 MG/DL (6-23); CALCIUM, SERUM 8.7 MG/DL (8.5-10.4); CHLORIDE, SERUM 100 MMOL/L (96-112); CO2 (CARBON DIOXIDE) 27 MMOL/L (24-34); GFR AFRICAN AMERICAN 68 ML/MIN (>=60); GFR NON AFRICAN AMERICAN 58 ML/MIN (>=60); GLUCOSE, SERUM 163 MG/DL (60-99); POTASSIUM, SERUM 3.9 MMOL/L (3.5-5.3); SGOT(AST) 46 U/L (5-40); SGPT(ALT) 68 U/L (5-65); SODIUM, SERUM 138 MMOL/L (135-148); TOTAL BILIRUBIN 0.7 MG/DL (0-1.2); TOTAL PROTEIN 6.4 G/DL (6.0-8.5); TROPONIN I <0.02 NG/ML (<0.05)
[2016-11-17 03:56] LABS: BASOPHILS 0.1 %; BASOPHILS ABSOLUTE 0.01 10/3/uL (0.0-0.16); EOSINOPHILS 5.4 %; EOSINOPHILS ABSOLUTE 0.36 10/3/uL (0.0-0.53); HEMOGLOBIN 11.9 g/dL (13.6-17.8); IMMATURE GRANULOCYTES 0.1 %; IMMATURE GRANULOCYTES ABSOLUTE 0.01 10/3/uL (0.0-0.11); LYMPHOCYTES 20.8 %; LYMPHOCYTES ABSOLUTE 1.39 10/3/uL (0.67-4.30); MEAN CORPUS HGB CONC 32.2 g/dL (32.0-36.0); MEAN CORPUSCULAR HEMOGLOB 28.4 pg (26.0-34.0); MEAN CORPUSCULAR VOLUME 88.3 fL (80-100); MEAN PLATELET VOLUME 10.7 fL (9.2-13.0); MONOCYTES 10.9 %; MONOCYTES ABSOLUTE 0.73 10/3/uL (0.21-1.20); NEUTROPHILS 62.7 %; NEUTROPHILS ABSOLUTE 4.18 10/3/uL (2.02-8.40); PLATELET COUNT 196 10/3/uL (150-400); RBC DISTRIBUTION WIDTH 13.7 % (12.0-16.0); RED CELL COUNT 4.19 10/6/uL (4.7-6.1); WHITE BLOOD CELLS 6.7 10/3/uL (4.5-10.5)
[2016-11-17 03:58] LABS: MANUAL DIFF NO %
[2016-11-17 04:07] LABS: BUN (BLOOD UREA NITROGEN) 16 MG/DL (6-23); CHLORIDE, SERUM 103 MMOL/L (96-112); CO2 (CARBON DIOXIDE) 32 MMOL/L (24-34); CREATININE 1.47 MG/DL (0.70-1.30); GFR AFRICAN AMERICAN 58 ML/MIN (>=60); GFR NON AFRICAN AMERICAN 50 ML/MIN (>=60); GLUCOSE, SERUM 113 MG/DL (60-99); POTASSIUM, SERUM 4.5 MMOL/L (3.5-5.3); SODIUM, SERUM 142 MMOL/L (135-148)
[2016-11-18 04:18] LABS: BASOPHILS 0.4 %; BASOPHILS ABSOLUTE 0.02 10/3/uL (0.0-0.16); EOSINOPHILS 6.9 %; EOSINOPHILS ABSOLUTE 0.37 10/3/uL (0.0-0.53); HEMOGLOBIN 11.6 g/dL (13.6-17.8); IMMATURE GRANULOCYTES 0.2 %; IMMATURE GRANULOCYTES ABSOLUTE 0.01 10/3/uL (0.0-0.11); LYMPHOCYTES 26.7 %; LYMPHOCYTES ABSOLUTE 1.43 10/3/uL (0.67-4.30); MANUAL DIFF NO %; MEAN CORPUS HGB CONC 32.2 g/dL (32.0-36.0); MEAN CORPUSCULAR HEMOGLOB 28.4 pg (26.0-34.0); MEAN PLATELET VOLUME 10.4 fL (9.2-13.0); MONOCYTES 13.8 %; MONOCYTES ABSOLUTE 0.74 10/3/uL (0.21-1.20); NEUTROPHILS ABSOLUTE 2.79 10/3/uL (2.02-8.40); PLATELET COUNT 196 10/3/uL (150-400); RBC DISTRIBUTION WIDTH 13.5 % (12.0-16.0); RED CELL COUNT 4.09 10/6/uL (4.7-6.1); WHITE BLOOD CELLS 5.4 10/3/uL (4.5-10.5)
[2016-11-18 04:29] LABS: BUN (BLOOD UREA NITROGEN) 15 MG/DL (6-23); CALCIUM, SERUM 8.6 MG/DL (8.5-10.4); CHLORIDE, SERUM 103 MMOL/L (96-112); CO2 (CARBON DIOXIDE) 32 MMOL/L (24-34); CREATININE 1.06 MG/DL (0.70-1.30); GFR AFRICAN AMERICAN 87 ML/MIN (>=60); GFR NON AFRICAN AMERICAN 75 ML/MIN (>=60); GLUCOSE, SERUM 123 MG/DL (60-99); POTASSIUM, SERUM 4.1 MMOL/L (3.5-5.3); SODIUM, SERUM 143 MMOL/L (135-148)
[2016-11-18 12:30] LABS: ALBUMIN 3.2 G/DL (3.5-5.0); GLOBULIN 3.1 G/DL (2.5-4.1); SGOT(AST) 24 U/L (5-40); SGPT(ALT) 43 U/L (5-65); TOTAL PROTEIN 6.3 G/DL (6.0-8.5)
[2016-11-18 12:31] LABS: ALKALINE PHOSPHATASE 76 U/L (45-117); DIRECT BILIRUBIN < 0.1 MG/DL (0.0-0.4); INDIRECT BILIRUBIN(NOT ORDER) 0.1 MG/DL (0.1-0.9); TOTAL BILIRUBIN 0.2 MG/DL (0-1.2)
[2016-11-19] MEDS ORDERED: FLONASE NAS (11:58)
[2016-11-19] MEDS ORDERED: CLARIT10 PO (12:03)
[2016-11-19] MEDS ORDERED: PROMEGA PO (12:05)
[2016-11-19] MEDS ORDERED: NORCO1 TA1 PO (12:07)
[2016-11-19] MEDS ORDERED: T PO (12:07)
[2016-11-19] MEDS ORDERED: KEPPRA750 MG PO (12:16)
[2016-11-19] MEDS ORDERED: NORV5 PO (12:19)
[2016-11-24 08:02] LABS: CREATININE 1.1 MG/DL (0.70-1.30)
== END 2016-11-19 13:45 | disposition home or self-care (01) | DRG 38 ==
LOC: ER 11:05 → 1SO 14:41 → IMCU 18:29 → SDC/OF 11-15 16:34 → CVICU 11-15 19:37 → 2SO 11-17 17:27
PROVIDERS: Emergency Medicine; Hospitalist; Internal Medicine
PROC: 03CM0ZZ Extirpation of Matter from Right External Carotid Artery, Open Approach (ICD-10-PCS; principal; 2016-11-11)
PROC: 03CK0ZZ Extirpation of Matter from Right Internal Carotid Artery, Open Approach (ICD-10-PCS; 2016-11-15)
DX: I65.23 Occlusion and stenosis of bilateral carotid arteries (principal); G81.94 Hemiplegia, unspecified affecting left nondominant side; N17.9 Acute kidney failure, unspecified; I50.22 Chronic systolic (congestive) heart failure; I11.0 Hypertensive heart disease with heart failure; N39.0 Urinary tract infection, site not specified; R47.1 Dysarthria and anarthria; R20.0 Anesthesia of skin; G40.909 Epilepsy, unspecified, not intractable, without status epilepticus; I25.5 Ischemic cardiomyopathy; I73.9 Peripheral vascular disease, unspecified; I99.8 Other disorder of circulatory system; G47.33 Obstructive sleep apnea (adult) (pediatric); D64.9 Anemia, unspecified; B96.20 Unspecified Escherichia coli [E. coli] as the cause of diseases classified elsewhere; F10.21 Alcohol dependence, in remission; Z79.82 Long term (current) use of aspirin; Z79.899 Other long term (current) drug therapy; Z88.5 Allergy status to narcotic agent; Z86.73 Personal history of transient ischemic attack (TIA), and cerebral infarction without residual deficits; Z87.891 Personal history of nicotine dependence; Z82.3 Family history of stroke; Z82.49 Family history of ischemic heart disease and other diseases of the circulatory system; Z91.14 Patient's other noncompliance with medication regimen
CPT/HCPCS: 36415; 70450; 70496; 70498; 70551; 71010; 71275; 80048; 80053; 80061; 81001; 82248; 82550; 82553; 82962; 83036; 84484; 85014; 85018; 85025; 85610; 85730; 86850; 86900; 86901; 87077; 87086; 87184; 87186; 88304; 88311; 93005; 94640; 97161-GP; 99285; A9270-GY; J0360; J0690; J1170; J2250; J2370; J2405; J2710; J3010; Q9967

== ENCOUNTER 2016-12-03 18:21 | Inpatient (IN) | payer OTHER ==
--- NOTE | ~2016-12-03 | CN ---
Consultation Report [facility] [address] [place]. [address] NAME: WALT STEVENSON : 53 STATUS : ADM IN PAT#: [id number] AGE: 61 ADM/REG DATE : 12/03/16 MR#: [id number] REPORT SERV DATE: 12/04/16 DICTATED BY: DATE: REPORT STATUS : Draft TRANSCRIBED BY: MODL DATE: 12/04/16 NEUROLOGY CONSULTATION DATE OF CONSULTATION: 12/04/2016 REASON FOR CONSULT: Numbness. HISTORY OF PRESENT ILLNESS: This is a 61-year-old male who presented to [facility] as a transfer from outside hospital for facial numbness. The patient was initially hospitalized at [facility] from 11/11/2016 to 11/19/2016, for carotid endarterectomy as well as facial numbness. After the procedure, the patient's facial numbness persisted. MRI of the brain did not demonstrate any acute stroke. Also the patient was noted to have findings concerning for amyloid angiopathy. The patient was started on Keppra, minimized anticoagulation with the patient discharged on aspirin as well as Lipitor, subsequently discharged to home. The patient reports that while at home on 12/03/2016, the patient took a blood pressure medication, afterwards took blood pressure, was noted to be hypotensive with systolic in the 90s. The patient subsequently ate with blood pressure returned above 100. The patient called [facility] and was told by the nursing staff to present to hospital for evaluation. The patient presented to [facility] and received MRI of the brain and was subsequently transferred to [facility] for higher level of care. The patient still complains of bilateral facial numbness but reports mildly improved compared to the day prior. The patient, at the [place], was noted to have headache associated with slurred speech which subsequently resolved. The patient denies any occurrence of slurred speech and denies any focal weakness or numbness. The patient denies gait abnormality and denies any dysarthria, dysphagia, language difficulty, or diplopia. The patient denies recent illness and denies any recent change in medication after hospital discharge. ALLERGIES: THE PATIENT REPORTS ALLERGY TO MORPHINE, CODEINE, AND CHOCOLATES. PAST MEDICAL HISTORY: The patient's past medical history is significant for nonischemic cardiomyopathy, ejection fraction of 38% with the patient also noted to have bilateral internal carotid artery disease with the patient noted to have a complete occlusion of the left internal carotid artery, recent critical stenosis of right internal carotid artery, status post carotid endarterectomy. The patient was also noted to have a history of allergic rhinitis with the patient noted to have a history of left temporal stroke with chronic numbness of right upper extremity and right foot. The patient, in addition, was also noted to have MRI finding concerning for amyloid angiopathy recently. HOME MEDICATIONS: The patient's home medications consisted of Tylenol, Norvasc, aspirin, Lipitor, Coreg, Flonase, Neurontin, hydrochlorothiazide, [place], Imdur, Keppra, Claritin, fish oil, and potassium. SOCIAL HISTORY: Denies current tobacco, alcohol, or recreational drug usage. Consultation Report [address] [place]. [address] NAME: WALT STEVENSON : 53 STATUS : ADM [facility]#: [id number] AGE: 61 ADM/REG DATE : 12/03/16 MR#: [id number] REPORT SERV DATE: 12/04/16 DICTATED BY: DATE: REPORT STATUS : Draft TRANSCRIBED BY: MODL DATE: 12/04/16 FAMILY HISTORY: Significant for strokes. REVIEW OF SYSTEMS: Negative except for those mentioned in the HPI. PHYSICAL EXAMINATION: VITAL SIGNS: At the time of evaluation, the patient was noted to have vital signs with T-max of 98.3, heart rate of 49 to 63, respiration of 12 to 20, and blood pressure of 118 to 169 over 61 to 93. GENERAL: The patient is well developed, well nourished, in no acute distress. CARDIOVASCULAR: Regular rate and rhythm. No carotid bruits were otherwise auscultated. PULMONARY: Examination was clear to auscultation bilaterally. NEUROLOGICAL: Generally, the patient is alert, oriented to person, place, year, and month. Follows simple and two-step commands. No dysarthria. No aphasia. Intact registration and recall. Cranial nerves 2 through 12, pupils equal, round, and reactive to light. Horizontal eye movement was noted to be intact with intact peripheral vision. No visual neglect was otherwise noted. Symmetrical facial sensation was noted. Also diminished the rest of the body. The patient was noted to have symmetrical facial expression. Midline tongue. Normal palatal movement. Normal hearing. The patient demonstrated 5/5 bilateral upper and lower extremity strength. No pronator drift was otherwise visualized. Reports symmetrical sensation in bilateral upper extremity and bilateral lower extremity, deep tendon reflex was 2+ throughout. Normal [id number]-[id number]-gvwd examination without ataxia. The patient demonstrated normal stable gait and normal station. LABORATORY STUDIES: Demonstrated white blood cell count of 6.0, hemoglobin of 12.9, hematocrit of 39.2, and platelet count of 213. Chemistry panel: Cholesterol of 226, HDL of 42, LDL of 145, triglycerides 198. CPK of 150. Hemoglobin A1c of 5.6. Urinalysis demonstrated negative leukocyte esterase, negative nitrite. CT scan of the brain was reviewed which demonstrated pre-existing left temporal MCA distribution encephalopathy as well as generalized atrophy but otherwise no acute process was seen. The patient's outpatient record from [facility] was reviewed. MRI of the brain report demonstrated no acute process with MRA of the neck demonstrated complete occlusion of the left ICA with reconstitution distally as well as patent right ICA per MRA report at [facility]. Actual imaging is not available for review. IMPRESSION: 1. Bilateral facial numbness concern secondary to hypoperfusion due to hypotension as well as external carotid artery arthrosclerotic disease. MRI of the brain at [facility] demonstrated no acute events and no stroke while MRA of the head and neck at the outside hospital demonstrated no significant changes or reocclusion. We will recommend continue aspirin. We will increase Lipitor to 80 mg p.o. at bedtime secondary to elevated cholesterol levels. We will check echocardiogram. Meanwhile we will avoid systolic blood pressure less than 100 mmHg. Consultation Report [facility] [id number] [place]. [address] NAME: WALT STEVENSON : 53 STATUS : ADM [facility]#: [id number] AGE: 61 ADM/REG DATE : 12/03/16 MR#: [id number] REPORT SERV DATE: 12/04/16 DICTATED BY: DATE: REPORT STATUS : Draft TRANSCRIBED BY: MODL DATE: 12/04/16 RECOMMENDATIONS: 1. Avoid systolic blood pressure less than 100 mmHg. 2. Echocardiogram. 3. We will continue aspirin. 4. Increase Lipitor to 80 mg p.o. bedtime. [facility]/MODL Joe Tello MD / [id number] CC: Braxton Shirley DO
--- NOTE | ~2016-12-03 | DS ---
Discharge Summary [facility] [address] [place]. [address] NAME: WALT STEVENSON : 53 STATUS : DIS IN PAT#: [id number] AGE: 61 ADM/REG DATE : 12/03/16 MR#: [id number] REPORT SERV DATE: 12/07/16 DICTATED BY: ROSE MARIE PEREZ DATE: 12/06/16 REPORT STATUS : Draft TRANSCRIBED BY: MODL DATE: 12/06/16 ADMISSION DATE: 12/03/2016 DISCHARGE DATE: 12/06/2016 HOSPITAL COURSE: This is a 61-year-old, male. He has a known past medical history nonischemic cardiomyopathy, LVEF 38%. Had a heart catheterization by Dr. Bustos on the 10/08/2016, showing minimal CAD, history of hypertension, recent ESBL, E. 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 The patient apparently was here in October 2016. At that time was thought to have had a TIA. As a result, was found to have amyloid angiopathy per Neurology and to minimize antiplatelets and anticoagulants which is confounded by the fact that he needs antiplatelets for his PAD. The patient came in with significant unsteadiness in facial numbness and headache with and aura thereafter, was found likely to have a complicated migraine due to hypoperfusion due to blood pressure being below 100 upon taking his antihypertensives. MRI at [facility] showed no acute events, no stroke. MRA showed no signet significant changes. No reocclusion. As a result, his statin was increased to Lipitor 80. I went ahead and did a CT of the brain for structural assurance and this shows stable moderate cerebral atrophy, periventricular leukoencephalopathy. No acute process with the noted stable encephalomalacia and the MCA territory on the left. Finally, got echocardiogram after getting a right upper quadrant ultrasound for transient abdominal pain that improved. LFTs were normal by the way. UA was clean. An echo finally resulted showing EF of 40%. Normal left atrial size. Negative intravenous bubble study. No evidence of intracardiac shunt. This is in line with his previous echo report per Dr. Bustos. EF of 38%, nonischemic cardiomyopathy with nonobstructive CAD, heart catheterization as a result. Followup with Cardiology four to six weeks, sees Dr. Bustos Neuro 4 to 8 weeks 0.5 L normal saline bolus. Prior to discharge, the patient was found to be orthostatic as a result of the heart failure. His antihypertensive need to better optimize with beta ciro, or Backbone therapy for heart failure and as a result. DISCHARGE MEDICATIONS: Aspirin 81 p.o. daily, Lipitor 80 p.o. daily, carvedilol 3.125 p.o. b.i.d., hold if systolic less than 110. Flonase, gabapentin home dose, as well as Imdur 60 p.o. daily, considered to be escalating that as well, Keppra 750 p.o. b.i.d., Claritin 10 p.o. daily as well as KCl 10 mEq p.o. daily as well as losartan 25 p.o. daily, hold if systolic less than 110. go home. All questions were answered, it took well over 30 minutes to do consults, Neurology procedures, echo. DISCHARGE DIAGNOSES: See above. Discharge Summary [address] [address] NAME: WALT STEVENSON : 53 STATUS : DIS IN PAT#: [id number] AGE: 61 ADM/REG DATE : 12/03/16 MR#: [id number] REPORT SERV DATE: 12/07/16 DICTATED BY: ROSE MARIE PEREZ DATE: 12/06/16 REPORT STATUS : Draft TRANSCRIBED BY: DANIKA DATE: 12/06/16 WENDY/DANIKA Rose Marie Perez DO / [id number] CC: Rose Marie Perez DO
--- NOTE | ~2016-12-03 | HP ---
History And Physical [place] [id number] [facility] [place]. [address] NAME: WALT STEVENSON : 53 STATUS : ADM IN PAT#: [id number] AGE: 61 ADM/REG DATE : 12/03/16 MR#: [id number] REPORT SERV DATE: 12/04/16 DICTATED BY: NOEMÍ BANKS DATE: 12/03/16 REPORT STATUS : Draft TRANSCRIBED BY: MODL DATE: 12/03/16 DATE OF ADMISSION: 12/03/2016 IDENTIFYING DATA: A 61-year-old white male whose PCP is Dr. Moser at the [place], Vascular is Dr. Toledo, paraffiner is Dr. Nadine Bustos. CHIEF COMPLAINT: Numbness of face. HISTORY OF PRESENT ILLNESS: This history of present illness is obtained by talking with the patient as well as with the ER physician on the phone at [facility], Dr. Javon Marquez, and I reviewed his recent notes from [facility] and [facility]. The patient was admitted here 11/11/2016 through 11/19/2016. I was involved in his care to the end of his hospitalization then. At that time, he was thought to have had TIA versus amyloid angiopathy episodes. He was found at that time to have acute kidney injury and a chronically occluded left internal carotid artery. He also was found to have significant stenosis of his right internal carotid artery and underwent a right carotid endarterectomy on 11/15/2016. Postprocedure, the patient had complaints of acute numbness in the left side of his body that was different and some slowing of mentation and language. He was reassessed at that time with a CT of the brain and MRI of the brain, no acute abnormalities were noted. The patient is felt by his imaging to have amyloid angiopathy. As a result, Neurology wanted to minimize anticoagulants for him. He has known peripheral arterial disease as well as will be described further below. He had gotten home. He was doing fairly well. He noticed today that he felt "drunk and unsteady." His blood pressure initially was 98 systolic. He rechecked, it was 117/86. He called the [place], the nurse told him to go the ER. He went to the [facility] ER. He states his speech felt slurred, and he had numbness of his entire face. He also states he just lost track at time, he thought he had only been there for a short time when he had really been there for about four hours. He also today he had an aura in front of his right eye with flashing lights and then a headache afterwards which he states he has had periodically as a migraine in the past, but none in a couple of months. He had no new focal weakness or numbness except the entire face felt numb. REVIEW OF SYSTEMS: He has had some occasional right upper quadrant discomfort for several months. He states it is intermittent, does not change with meals, does not change with bowel movements. He still has some dysuria. He has two time per night nocturia. His weight has fluctuated over the last year from 195 to 212 back to 205 pounds. He denies any recent fever, cough, nasal congestion, sore throat, chest pain, shortness of breath, nausea, vomiting, diarrhea, rectal bleeding, melena, urinary hesitancy, peripheral edema, or rash. He states no tick bites or anorexia. ALLERGIES: HE STATES HE HAS AN INTOLERANCE TO MORPHINE, CODEINE, AND CHOCOLATE. History And Physical [address] [address] NAME: WALT STEVENSON : 53 STATUS : ADM IN [facility]#: [id number] AGE: 61 ADM/REG DATE : 12/03/16 MR#: [id number] REPORT SERV DATE: 12/04/16 DICTATED BY: NOEMÍ BANKS DATE: 12/03/16 REPORT STATUS : Draft TRANSCRIBED BY: MODRaffi DATE: 12/03/16 PAST MEDICAL HISTORY: He has known nonischemic cardiomyopathy with ejection fraction of 38%. He had a heart catheterization by Dr. Bustos at [facility] on 10/08/2016 showing minimal coronary artery disease. He has a history of hypertension. He has had a recent ESBL E. coli urinary tract infection. He has questionable obstructive sleep apnea. He had some mildly elevated liver enzymes for a short time while he was here and that resolved. He has had allergic rhinitis. He has had peripheral arterial disease with bilateral axillary- axillary bypass and previous left carotid endarterectomy years ago, and then when he was here last time, he had a right carotid endarterectomy. He has a history of normocytic anemia, and he has had a known old left temporal stroke which left him with chronic numbness of right hand, right foot. HOME MEDICATIONS: Tylenol p.r.n., Norvasc 5 mg daily, aspirin 81 mg daily, Lipitor 40 mg at bedtime, Coreg 12.5 mg b.i.d., Flonase nasal spray daily, gabapentin 400 mg b.i.d. hydrochlorothiazide 12.5 mg daily, [place] 5/325 q.6 hours p.r.n. pain, Imdur 60 mg daily, Keppra 750 mg b.i.d. (Keppra was started by Neurology when he had these post-carotid endarterectomy episodes at last admission), Claritin 10 mg daily, fish oil 1000 mg twice a day, KCl 10 mEq every day. PAST SURGICAL HISTORY: He has had a right carotid endarterectomy during his last hospitalization. No previous left carotid endarterectomy. He had axillary-axillary bypass in the past, cholecystectomy, appendectomy, hernia bilaterally, left femoral artery surgery, tonsillectomy, and uvulectomy for sleep apnea. SOCIAL HISTORY: He is retired from the [employer]. He is . He quit smoking last year. He used to drink moderately heavy, then he cut it down, and last year, he stopped altogether. FAMILY HISTORY: Mother had strokes, siblings with strokes. He does not know much about his father. DIAGNOSTIC DATA: From [facility]; sodium 141, potassium 3.5, chloride is 101, CO2 is 33, BUN 25, creatinine 1.6 and by comparison, his creatinine was 1.06 when he left here on 11/18/2016, glucose today 125, calcium 9.4. White count is 5.5, hemoglobin 12.1, platelets 216,000. His troponin less than 0.015. CMP was otherwise normal. ProTime 10.8, INR 1.0, PTT is 26.1. White count, as mentioned 5.5, hemoglobin 12.1, platelets 216,000. MRA and MRI of the brain, neck done over at [facility] today shows occluded left internal carotid, patent right internal carotid with a high-grade right external carotid artery stenosis. MRI of the brain, no acute stroke. There is an old left MCA stroke with encephalomalacia and age-related atrophy. MRA of the brain shows the old left MCA territory infarct and the left carotid was occluded with some reconstitution through the left posterior communicating. PHYSICAL EXAMINATION: VITAL SIGNS: Temp is 98.2, pulse 60, respirations 18, blood pressure 120/70, O2 saturation is 93%. GENERAL: Well-developed male, who at that time appears in no acute distress. HEENT: Head is atraumatic. Pupils are equal, round, and reactive to light. Extraocular History And Physical [address] [address] NAME: WALT STEVENSON : 53 STATUS : ADM IN [facility]#: [id number] AGE: 61 ADM/REG DATE : 12/03/16 MR#: [id number] REPORT SERV DATE: 12/04/16 DICTATED BY: NOEMÍ BANKS DATE: 12/03/16 REPORT STATUS : Draft TRANSCRIBED BY: DANIKA DATE: 12/03/16 motions are intact. No scleral icterus noted. Ear canals and TMs unremarkable bilaterally with normal hearing bilaterally. Nose, noninflamed externally. Septum midline. Nares patent. Mouth, moist. Good gag. No redness of the throat, gums, or lips. NECK: Supple. No lymph node or thyroid enlargement. The carotids have good pulses. He has a left-sided carotid bruit. Well-healed recent carotid endarterectomy scar on the right side of his neck. LUNGS: Clear. Good air flow. No wheezes, no rhonchi anterior and posteriorly. Normal respiratory effort. HEART: Regular rate and rhythm without murmur, gallop, click, or rub. ABDOMEN: Bowel sounds positive. Soft, nondistended, nontender except right upper quadrant. Mild with palpation. No rebound. Negative Gage sign. No bruits in the abdomen. EXTREMITIES: Warm and good pulses. No clubbing, no cyanosis, no edema. No actively inflamed skin or joints. NEUROLOGIC: He is alert. He is oriented. He is cooperative. His speech is clear. His motor strength is 5/5 in all four extremities. No Babinski. No clonus noted. He has diminished sensation in the top of the right foot, in the lateral aspect of the right hand, which he states is very chronic. He also has diminished sensation throughout the entire face to light touch. No Babinski. No clonus noted. ASSESSMENT: 1. Episodes of unsteadiness of gait along with facial numbness. Differential diagnosis transient ischemic attack versus complicated migraine versus amyloid angiopathy. 2. Acute kidney injury. 3. Possible recurrent urinary tract infection. 4. See past medical history. PLAN: 1. Admit to the Neurology floor on telemetry. 2. We will continue his aspirin. We will check a urinalysis and a urine culture. We will hold his hydrochlorothiazide. We will check an abdominal ultrasound with his intermittent right upper quadrant pain. We will ask Neurology to see him. JORGE L/DANIKA Noemí Banks M.D. / [id number] CC: DO Jonathan Portillo M.D. Dannis Hood Jr., M.D.
[~2016-12-03 18:21] MED LIST: ASAB PO; CLARIT10 PO; COREG12 PO; FISH OIL PO; FLONASE NAS; HCTZ12.5; IMDUR60 PO; KDUR10 PO; KEPPRA750 MG PO; LIPITOR40 PO; LISINOPRIL40 MG PO; NEUR400 PO; NORCO1 TA1 PO; NORV5 PO; PLAVIX PO; PROMEGA PO; T PO
[2016-12-03] MEDS ORDERED: T PO (18:27)
[2016-12-03] MEDS ORDERED: NORV5 PO (18:28)
[2016-12-03] MEDS ORDERED: COREG3 PO (18:28)
[2016-12-03] MEDS ORDERED: LIPITOR40 PO (18:28)
[2016-12-03] MEDS ORDERED: ASAB PO (18:28)
[2016-12-03] MEDS ORDERED: FLONASE NAS (18:29)
[2016-12-03] MEDS ORDERED: NEUR400 PO (18:29)
[2016-12-03] MEDS ORDERED: MICROZIDE PO (18:29)
[2016-12-03] MEDS ORDERED: NORCO1 TA1 PO (18:30)
[2016-12-03] MEDS ORDERED: CLARIT10 PO (18:30)
[2016-12-03] MEDS ORDERED: IMDUR60 PO (18:30)
[2016-12-03] MEDS ORDERED: KEPPRA750 MG PO (18:30)
[2016-12-03] MEDS ORDERED: KLOR-CON 1010 MEQ PO (18:31)
[2016-12-03] MEDS ORDERED: FISH-EPA1000 MG PO (18:31)
[2016-12-03 21:30] LABS: BASOPHILS 0.3 %; BASOPHILS ABSOLUTE 0.02 10/3/uL (0.0-0.16); EOSINOPHILS 7.1 %; EOSINOPHILS ABSOLUTE 0.43 10/3/uL (0.0-0.53); HEMATOCRIT 39.2 % (40.0-51.0); HEMOGLOBIN 12.9 g/dL (13.6-17.8); IMMATURE GRANULOCYTES 0.2 %; IMMATURE GRANULOCYTES ABSOLUTE 0.01 10/3/uL (0.0-0.11); LYMPHOCYTES 34.6 %; LYMPHOCYTES ABSOLUTE 2.09 10/3/uL (0.67-4.30); MANUAL DIFF NO %; MEAN CORPUS HGB CONC 32.9 g/dL (32.0-36.0); MEAN CORPUSCULAR HEMOGLOB 28.2 pg (26.0-34.0); MEAN CORPUSCULAR VOLUME 85.6 fL (80-100); MEAN PLATELET VOLUME 10.2 fL (9.2-13.0); MONOCYTES 9.1 %; MONOCYTES ABSOLUTE 0.55 10/3/uL (0.21-1.20); NEUTROPHILS 48.7 %; NEUTROPHILS ABSOLUTE 2.94 10/3/uL (2.02-8.40); PLATELET COUNT 213 10/3/uL (150-400); RBC DISTRIBUTION WIDTH 13.3 % (12.0-16.0); RED CELL COUNT 4.58 10/6/uL (4.7-6.1)
[2016-12-03 21:41] LABS: INTERNATIONAL NORMAL RATI 1.1 UNITS (-); PARTIAL THROMBO TIME 34.9 SEC (22.5-37.2); PROTIME (NOT ORD) 13.9 SEC (12.0-14.5)
[2016-12-03 21:48] LABS: HDL CHOLESTEROL 42 MG/DL (> 39); TRIGLYCERIDE 198 MG/DL (< 150); TROPONIN I 0.02 NG/ML (<0.05)
[2016-12-03 21:49] LABS: CHOL/HDL RATIO(NOT ORDER) 5.4 (0-5); CHOLESTEROL 226 MG/DL (< 200); CK-MB 2.8 NG/ML; CPK 148 U/L (0-200); LDL CHOLESTEROL 145 MG/DL (< 130); NON-HDL CHOLESTEROL 184 MG/DL (< 160)
[2016-12-04 05:16] LABS: CPK 150 U/L (0-200); TROPONIN I 0.02 NG/ML (<0.05)
[2016-12-04 05:18] LABS: CK-MB 2.5 NG/ML
[2016-12-04 10:52] LABS: ASCORBIC ACID (UR NOT ORDER) NEG (NEG); BILIRUBIN, URINE NEGATIVE (NEG); KETONE, URINE NEGATIVE (NEG); LEUKOCYTE ESTERASE(NOT OR NEG (NEG); WBC (NOT ORDERED) (RFLEX) < 1 (0-5)
[2016-12-04 15:08] LABS: ALBUMIN 3.5 G/DL (3.5-5.0); ALKALINE PHOSPHATASE 63 U/L (45-117); BUN (BLOOD UREA NITROGEN) 20 MG/DL (6-23); CALCIUM, SERUM 9.1 MG/DL (8.5-10.4); CHLORIDE, SERUM 103 MMOL/L (96-112); CK-MB 1.5 NG/ML; CO2 (CARBON DIOXIDE) 32 MMOL/L (24-34); CPK 120 U/L (0-200); DIRECT BILIRUBIN < 0.1 MG/DL (0.0-0.4); GFR AFRICAN AMERICAN 75 ML/MIN (>=60); GFR NON AFRICAN AMERICAN 64 ML/MIN (>=60); GLUCOSE, SERUM 108 MG/DL (60-99); INDIRECT BILIRUBIN(NOT ORDER) 0.1 MG/DL (0.1-0.9); PHOSPHORUS, SERUM 2.8 MG/DL (2.5-4.5); POTASSIUM, SERUM 4.2 MMOL/L (3.5-5.3); SGOT(AST) 10 U/L (5-40); SGPT(ALT) 16 U/L (5-65); SODIUM, SERUM 142 MMOL/L (135-148); TOTAL BILIRUBIN 0.2 MG/DL (0-1.2); TOTAL PROTEIN 6.5 G/DL (6.0-8.5); TROPONIN I <0.02 NG/ML (<0.05)
[2016-12-05 05:42] LABS: BASOPHILS 0.3 %; BASOPHILS ABSOLUTE 0.02 10/3/uL (0.0-0.16); EOSINOPHILS ABSOLUTE 0.39 10/3/uL (0.0-0.53); HEMATOCRIT 39.1 % (40.0-51.0); HEMOGLOBIN 12.5 g/dL (13.6-17.8); IMMATURE GRANULOCYTES 0.1 %; IMMATURE GRANULOCYTES ABSOLUTE 0.01 10/3/uL (0.0-0.11); LYMPHOCYTES ABSOLUTE 2.18 10/3/uL (0.67-4.30); MEAN CORPUSCULAR HEMOGLOB 27.8 pg (26.0-34.0); MEAN CORPUSCULAR VOLUME 86.9 fL (80-100); MEAN PLATELET VOLUME 10.9 fL (9.2-13.0); MONOCYTES 9.1 %; MONOCYTES ABSOLUTE 0.71 10/3/uL (0.21-1.20); NEUTROPHILS 57.5 %; NEUTROPHILS ABSOLUTE 4.48 10/3/uL (2.02-8.40); PLATELET COUNT 225 10/3/uL (150-400); RBC DISTRIBUTION WIDTH 13.2 % (12.0-16.0); WHITE BLOOD CELLS 7.8 10/3/uL (4.5-10.5)
[2016-12-05 05:43] LABS: MANUAL DIFF NO %
[2016-12-05 05:56] LABS: BUN (BLOOD UREA NITROGEN) 20 MG/DL (6-23); CHLORIDE, SERUM 104 MMOL/L (96-112); CO2 (CARBON DIOXIDE) 31 MMOL/L (24-34); GFR AFRICAN AMERICAN 83 ML/MIN (>=60); GFR NON AFRICAN AMERICAN 72 ML/MIN (>=60); GLUCOSE, SERUM 94 MG/DL (60-99); PHOSPHORUS, SERUM 3.1 MG/DL (2.5-4.5); POTASSIUM, SERUM 3.6 MMOL/L (3.5-5.3); SODIUM, SERUM 142 MMOL/L (135-148)
[2016-12-06 06:20] LABS: BASOPHILS 0.6 %; BASOPHILS ABSOLUTE 0.03 10/3/uL (0.0-0.16); EOSINOPHILS 7.4 %; HEMATOCRIT 38.9 % (40.0-51.0); HEMOGLOBIN 12.6 g/dL (13.6-17.8); LYMPHOCYTES 34.3 %; LYMPHOCYTES ABSOLUTE 1.84 10/3/uL (0.67-4.30); MANUAL DIFF NO %; MEAN CORPUS HGB CONC 32.4 g/dL (32.0-36.0); MEAN CORPUSCULAR HEMOGLOB 28.1 pg (26.0-34.0); MEAN CORPUSCULAR VOLUME 86.6 fL (80-100); MEAN PLATELET VOLUME 10.4 fL (9.2-13.0); MONOCYTES 11.2 %; NEUTROPHILS 46.5 %; PLATELET COUNT 201 10/3/uL (150-400); RBC DISTRIBUTION WIDTH 13.4 % (12.0-16.0); RED CELL COUNT 4.49 10/6/uL (4.7-6.1); WHITE BLOOD CELLS 5.4 10/3/uL (4.5-10.5)
[2016-12-06 06:37] LABS: BUN (BLOOD UREA NITROGEN) 23 MG/DL (6-23); CALCIUM, SERUM 9.7 MG/DL (8.5-10.4); CHLORIDE, SERUM 105 MMOL/L (96-112); CO2 (CARBON DIOXIDE) 34 MMOL/L (24-34); CREATININE 1.05 MG/DL (0.70-1.30); GFR AFRICAN AMERICAN 88 ML/MIN (>=60); GFR NON AFRICAN AMERICAN 76 ML/MIN (>=60); GLUCOSE, SERUM 93 MG/DL (60-99); PHOSPHORUS, SERUM 3.6 MG/DL (2.5-4.5); SODIUM, SERUM 142 MMOL/L (135-148)
[2016-12-06] MEDS ORDERED: COZ25 PO (16:54)
== END 2016-12-06 18:03 | disposition home or self-care (01) | DRG 292 ==
LOC: 1SO 18:21
PROVIDERS: Hospitalist; Internal Medicine
DX: I11.0 Hypertensive heart disease with heart failure (principal); N17.9 Acute kidney failure, unspecified; I42.8 Other cardiomyopathies; I50.22 Chronic systolic (congestive) heart failure; I95.1 Orthostatic hypotension; I73.9 Peripheral vascular disease, unspecified; I69.398 Other sequelae of cerebral infarction; R20.9 Unspecified disturbances of skin sensation; I25.10 Atherosclerotic heart disease of native coronary artery without angina pectoris; R47.81 Slurred speech; G47.33 Obstructive sleep apnea (adult) (pediatric); Z79.82 Long term (current) use of aspirin; Z79.899 Other long term (current) drug therapy; Z87.891 Personal history of nicotine dependence; Z87.440 Personal history of urinary (tract) infections; Z88.5 Allergy status to narcotic agent; Z91.018 Allergy to other foods
CPT/HCPCS: 70450; 71020; 76700; 80048; 80061; 80076; 81001; 82550; 82553; 83036; 83735; 84100; 84484; 85025; 85610; 85730; 93005; 93306; 97161-GP; 97166-GO; A9270-GY

== ENCOUNTER 2017-01-12 13:15 | Inpatient (IN) | payer OTHER ==
--- NOTE | ~2017-01-12 | HP ---
History And Physical [address] [place]. [address] NAME: WALT STEVENSON : 53 STATUS : ADM IN [facility]#: [id number] AGE: 61 ADM/REG DATE : 01/12/17 MR#: [id number] REPORT SERV DATE: 01/12/17 DICTATED BY: WEST [place]TS DATE: 01/12/17 REPORT STATUS : Draft TRANSCRIBED BY: MODRaffi DATE: 01/12/17 DATE OF ADMISSION: 01/12/2017 CHIEF COMPLAINT: Chest pain. HISTORY OF PRESENT ILLNESS: The patient is a very pleasant 61-year-old white male. He has complex past medical history, who presents today complaining of chest pain since last evening, radiating from his neck down his left arm, some diaphoresis, but no nausea or vomiting, and no abdominal pain, no new diarrhea, no documented fever, no new cough, came into the emergency room today and was noted to have very high blood pressure at 194/111 and this was felt he needed admission. He received several p.o. antihypertensives. His blood pressure failed to improve. He was placed on a Cardene drip. He has a significant history of both PAD and cerebrovascular disease, please see below. PAST MEDICAL HISTORY: 1. Previous CVA. 2. TIA versus amyloid angiopathy previously. 3. PAD with chronically occluded left carotid and recent right carotid endarterectomy as well as bilateral axillary bypasses. 4. Nonischemic cardiomyopathy, EF 38% to 40% with a negative cath in 09/2016. 5. Hypertension. 6. ESBL E coli UTI. 7. ALEXEY, but not on CPAP. 8. Previously abnormal LFTs. 9. Allergic rhinitis. 10.Anemia. 11.Chronic right hand and left foot numbness secondary to stroke. SURGICAL HISTORY: 1. He has had bilateral CEAs. 2. Bilateral axillary bypass. 3. Cholecystectomy. 4. Appendectomy. 5. UPPP. 6. Bilateral hernia repair. 7. Left femoral artery intervention. 8. Tonsillectomy. ALLERGIES: MORPHINE, CODEINE, CHOCOLATE MILK. SOCIAL HISTORY: He quit smoking a year ago. Does drink alcohol. Lives with his . HOME MEDICATIONS: Reviewed and attached. FAMILY HISTORY: Multiple family members have had strokes. History And Physical [address] [place]. [address] NAME: WALT STEVENSON : 53 STATUS : ADM IN PAT#: [id number] AGE: 61 ADM/REG DATE : 01/12/17 MR#: [id number] REPORT SERV DATE: 01/12/17 DICTATED BY: WEST BUTTS DATE: 01/12/17 REPORT STATUS : Draft TRANSCRIBED BY: DANIKA DATE: 01/12/17 REVIEW OF SYSTEMS: Full 10-point review of systems obtained, pertinent positives as mentioned in the HPI. PHYSICAL EXAMINATION: VITAL SIGNS: Current blood pressure 152/83, saturations 97%, temperature 98.0, pulse 62, respiratory rate 16. GENERAL: Well-developed white male, in no obvious distress. HEENT: Normocephalic, atraumatic. Pupils are equal, round, and reactive. Throat is clear. NECK: Supple. HEART: Regular rate and rhythm. LUNGS: Grossly clear. ABDOMEN: Soft, nontender, nondistended. EXTREMITIES: Warm and dry. SKIN: Intact without rash or lesion. He has an absent pulse in left foot, but he states this is chronic. The right foot, he has a pulse. His skin is intact without rash or lesion. NEURO: He is alert. He is oriented to person, place, and time. He has symmetrical strength and tone in all four extremities. His mood and affect are appropriate. Speech is intact. LABORATORY AND X-RAY: Chest x-ray is negative. Chemistry panel: Sodium 140, potassium 4, chloride 104, CO2 29, BUN and creatinine 14 and 1.14, glucose is 99, troponin 0.06, magnesium 2.1. CBC: White count 6, H and H 13 and 40, platelets are 212. Coags are normal. D-dimer is less than 0.27. EKG shows no acute change. ASSESSMENT/PLAN: 1. Hypertensive urgency with associated chest pain. Chest pain is improving. Blood pressures improving. He is on a Cardene drip. We will continue this overnight. Continue his home regimen of antihypertensives, we will likely adjust in the next 24 hours. We will do two more sets of cardiac enzymes. Initial troponin was 0.05. We will repeat his EKG in the morning. He just had a cath in September that looked good. I do not think we need to do anything extensive with an ischemic evaluation at this time. He seems to be improving. He just needs his antihypertensive regimen adjusted. Would have a goal of blood pressure, systolic 120-140 given that he has a chronically occluded carotid. 2. Peripheral arterial disease, extensive, including multiple areas with recent carotid endarterectomy. 3. Amyloid angiopathy. 4. Previous cerebrovascular accident. 5. Nonischemic cardiomyopathy, stable. 6. Deep venous thrombosis prophylaxis. Subcutaneous Lovenox. DISPOSITION: Pending above aforementioned plan and workup. TANIA/DANIKA History And Physical [address] [place]. [address] NAME: WALT STEVENSON : 53 STATUS : ADM IN [facility]#: [id number] AGE: 61 ADM/REG DATE : 01/12/17 MR#: [id number] REPORT SERV DATE: 01/12/17 DICTATED BY: WEST BUTTS DATE: 01/12/17 REPORT STATUS : Draft TRANSCRIBED BY: DANIKA DATE: 01/12/17 [place] M.D. / [id number] CC: Mariposa Cool Jr., M.D.
--- NOTE | ~2017-01-12 | DS ---
Discharge Summary [facility] [address] [place]. [address] NAME: WALT STEVENSON : 53 STATUS : DIS IN PAT#: [id number] AGE: 61 ADM/REG DATE : 01/12/17 MR#: [id number] REPORT SERV DATE: 01/14/17 DICTATED BY: LENA JIMENEZ DATE: 01/14/17 REPORT STATUS : Draft TRANSCRIBED BY: MODL DATE: 01/14/17 ADMISSION DATE: 01/12/2017 DISCHARGE DATE: 01/14/2017 DIAGNOSES ON ADMISSION: 1. Hypertensive urgency with associated chest pain. 2. Peripheral arterial disease with a history of recent carotid endarterectomy. 3. History of amyloid angiopathy. 4. Previous cerebrovascular accident. 5. History of nonischemic cardiomyopathy. DIAGNOSES ON DISCHARGE: 1. Hypertension, controlled, mild acute kidney injury improved with stable creatinine, check creatinine on Tuesday per Dr. Moser. 2. History of peripheral arterial disease, stable. 3. History of cerebrovascular accident in the past, stable. 4. Obstructive sleep apnea. 5. History of nonischemic cardiomyopathy, with ejection fraction of 38%. HISTORY OF PRESENT ILLNESS: Briefly, this is a very pleasant 61-year-old male, who was admitted by my colleague, Dr. Barbara Toledo, on 01/12/2017 with elevated blood pressure and chest pain. For the details, see history of present illness dictated by Dr. Toledo on 01/12/2017. Yesterday, the patient was seen by my colleague, Dr. Shaihd Gooden and his blood pressure was improving. He was doing better, but his kidney function just became a little bit abnormal. His creatinine yesterday was 1.29, so the decision was made to keep the patient one more day to recheck his creatinine. Today, his creatinine is 1.22, it is better and it is stable, and I could notice that the patient had before creatinine in the range of 1.4 to 1.2. It looks like he has chronic kidney disease and this is most likely his baseline creatinine, but we will ask the patient to recheck his creatinine per Dr. Moser, [place] doctor on Tuesday01/17/2017. Also, we will recommend to hold lisinopril and hydrochlorothiazide until the patient will see Dr. Moser. His blood pressure normalized and his today's blood pressure was in the normal range. It was 130/79, 126/74, 136/80, so it is unclear if the patient forgot to take some of his medications, although the patient stated that he was taking his medications regularly, but he ran out of some medications especially his blood pressure medication and I wrote almost on every blood pressure medicine new prescription for this patient. Because of history of stroke, he could not remember the names of his blood pressure medications as well, and the also, she did not bring his medications with him. So pharmacy clarified his blood pressure medications and I wrote prescriptions for this patient. He had minimally elevated troponin on admission, which has resolved. I think this was demand ischemia and this was related to high blood pressure on admission. The patient had coronary arteriography done by Dr. Bustos on 10/08/2016 which did not show any obstructive coronary artery disease, just with minimal obstruction, so he has nonischemic cardiomyopathy. Discharge Summary [address] [address] NAME: WALT STEVENSON : 53 STATUS : DIS IN PAT#: [id number] AGE: 61 ADM/REG DATE : 01/12/17 MR#: [id number] REPORT SERV DATE: 01/14/17 DICTATED BY: LENA JIMENEZ DATE: 01/14/17 REPORT STATUS : Draft TRANSCRIBED BY: DANIKA DATE: 01/14/17 The patient was doing well. He was discharged in a stable condition. I discussed every medicine with the patient and his . The patient is to continue aspirin 243 mg a day, Lipitor 40 mg a day, carvedilol 12.5 p.o. b.i.d., Plavix 75 mg daily, Neurontin 400 p.o. b.i.d., Keppra 750 p.o. b.i.d., Imdur 30 mg daily, nitroglycerin as needed for chest pain, omega-3 fatty acids 900 mg daily, potassium chloride 10 mEq daily, Flonase one spray daily p.r.n., the patient to hold lisinopril until seen by Dr. Moser, vitamin D 2000 units daily, the patient to hold HCTZ until creatinine is checked again, Zantac 150 mg twice a day, vilazodone 10 mg a day. I wrote prescriptions for Norvasc 5 mg a day as well as I wrote prescriptions for Lipitor 40 mg a day, carvedilol 12.5 p.o. b.i.d., Plavix 75 mg daily, isosorbide mononitrate 30 mg daily, and all prescriptions were written as generic. The patient was discharged in stable condition. He needs also to follow up with Dr. Bustos in two to three weeks as well as Dr. Moser on Tuesday. Everything was discussed with the patient and his . All instructions were given. I spent 50 minutes on this discharge. DICTATED BY: Mariposa Stratton/DANIKA Lena Jimenez M.D. / [id number] CC: Mariposa Stratton Jr., M.D.
[2017-01-12 12:38] LABS: BASOPHILS 0.3 %; BASOPHILS ABSOLUTE 0.02 10/3/uL (0.0-0.16); EOSINOPHILS 2.8 %; EOSINOPHILS ABSOLUTE 0.17 10/3/uL (0.0-0.53); ER CBC TAT 0 Hrs 08 Mins; HEMATOCRIT 39.9 % (40.0-51.0); LYMPHOCYTES 31.7 %; MANUAL DIFF NO %; MEAN CORPUS HGB CONC 32.6 g/dL (32.0-36.0); MEAN CORPUSCULAR HEMOGLOB 27.8 pg (26.0-34.0); MEAN CORPUSCULAR VOLUME 85.3 fL (80-100); MEAN PLATELET VOLUME 10.6 fL (9.2-13.0); MONOCYTES 9.3 %; MONOCYTES ABSOLUTE 0.56 10/3/uL (0.21-1.20); NEUTROPHILS 55.9 %; NEUTROPHILS ABSOLUTE 3.34 10/3/uL (2.02-8.40); PLATELET COUNT 212 10/3/uL (150-400); RBC DISTRIBUTION WIDTH 14.5 % (12.0-16.0); RED CELL COUNT 4.68 10/6/uL (4.7-6.1)
[2017-01-12 12:44] LABS: PROTIME (NOT ORD) 13.4 SEC (12.0-14.5)
[2017-01-12 12:45] LABS: PARTIAL THROMBO TIME 31.4 SEC (22.5-37.2)
[2017-01-12 12:48] LABS: D-DIMER QUANTITATIVE < 0.27 ug/mLFEU (< 0.50)
[2017-01-12 12:56] LABS: BUN (BLOOD UREA NITROGEN) 14 MG/DL (6-23); CALCIUM, SERUM 9.2 MG/DL (8.5-10.4); CHLORIDE, SERUM 104 MMOL/L (96-112); CO2 (CARBON DIOXIDE) 29 MMOL/L (24-34); CREATININE 1.14 MG/DL (0.70-1.30); GFR AFRICAN AMERICAN 79 ML/MIN (>=60); GFR NON AFRICAN AMERICAN 69 ML/MIN (>=60); GLUCOSE, SERUM 99 MG/DL (60-99); SODIUM, SERUM 140 MMOL/L (135-148)
[2017-01-12 12:58] LABS: CHEST PAIN PROFILE TAT 0 Hrs 28 Mins; TROPONIN I 0.06 NG/ML (<0.05)
[~2017-01-12 13:15] MED LIST changes: +COREG3 PO; +COZ25 PO; +FISH-EPA1000 MG PO; +KLOR-CON 1010 MEQ PO; +MICROZIDE PO
[2017-01-12] MEDS ORDERED: *UNABLE1 (16:05)
[2017-01-12] MEDS ORDERED: ASAB PO (16:06)
[2017-01-12] MEDS ORDERED: LIPITOR PO (16:06)
[2017-01-12] MEDS ORDERED: COREG PO (16:06)
[2017-01-12] MEDS ORDERED: LOSARTAN PO (16:07)
[2017-01-12] MEDS ORDERED: KEPPRA PO (16:07)
[2017-01-12] MEDS ORDERED: GABAPENTIN PO (16:07)
[2017-01-12] MEDS ORDERED: ISOSORBIDE PO (16:07)
[2017-01-12] MEDS ORDERED: POTASSIUM PO (16:08)
[2017-01-12] MEDS ORDERED: FISH-EPA1000 MG PO (16:08)
[2017-01-12] MEDS ORDERED: BLOOD THINNER (16:09)
[2017-01-12] MEDS ORDERED: PLAVIX PO (17:43)
[2017-01-12] MEDS ORDERED: LIPITOR40 PO (17:44)
[2017-01-12] MEDS ORDERED: HALF81 PO (17:44)
[2017-01-12] MEDS ORDERED: FLONASE NAS (17:45)
[2017-01-12] MEDS ORDERED: NEUR400 PO (17:45)
[2017-01-12] MEDS ORDERED: COREG12 PO (17:45)
[2017-01-12] MEDS ORDERED: KEPPRA750 MG PO (17:46)
[2017-01-12] MEDS ORDERED: IMDUR30 PO (17:46)
[2017-01-12] MEDS ORDERED: NITROSTAT0.4 MG SL (17:46)
[2017-01-12] MEDS ORDERED: KDUR10 PO (17:49)
[2017-01-12] MEDS ORDERED: LISINOPRIL40 MG PO (17:49)
[2017-01-12] MEDS ORDERED: ZANTAC 150 PO (17:50)
[2017-01-12] MEDS ORDERED: VITAMIN D2000 UNIT PO (17:50)
[2017-01-12] MEDS ORDERED: HCTZ25B PO (17:50)
[2017-01-12] MEDS ORDERED: FISH OIL300 MG PO (17:51)
[2017-01-12] MEDS ORDERED: VIIBRYD10 MG PO (17:51)
[2017-01-13 06:06] LABS: BASOPHILS 0.5 %; BASOPHILS ABSOLUTE 0.03 10/3/uL (0.0-0.16); EOSINOPHILS 3.1 %; EOSINOPHILS ABSOLUTE 0.19 10/3/uL (0.0-0.53); HEMATOCRIT 41.7 % (40.0-51.0); HEMOGLOBIN 13.3 g/dL (13.6-17.8); IMMATURE GRANULOCYTES 0.2 %; IMMATURE GRANULOCYTES ABSOLUTE 0.01 10/3/uL (0.0-0.11); LYMPHOCYTES 30.9 %; LYMPHOCYTES ABSOLUTE 1.88 10/3/uL (0.67-4.30); MANUAL DIFF NO %; MEAN CORPUS HGB CONC 31.9 g/dL (32.0-36.0); MEAN CORPUSCULAR HEMOGLOB 27.4 pg (26.0-34.0); MEAN CORPUSCULAR VOLUME 85.8 fL (80-100); MONOCYTES ABSOLUTE 0.73 10/3/uL (0.21-1.20); NEUTROPHILS 53.3 %; NEUTROPHILS ABSOLUTE 3.24 10/3/uL (2.02-8.40); PLATELET COUNT 229 10/3/uL (150-400); RBC DISTRIBUTION WIDTH 14.7 % (12.0-16.0); RED CELL COUNT 4.86 10/6/uL (4.7-6.1); WHITE BLOOD CELLS 6.1 10/3/uL (4.5-10.5)
[2017-01-13 06:12] LABS: CALCIUM, SERUM 9.1 MG/DL (8.5-10.4); CHLORIDE, SERUM 105 MMOL/L (96-112); CO2 (CARBON DIOXIDE) 29 MMOL/L (24-34); CREATININE 1.29 MG/DL (0.70-1.30); GFR AFRICAN AMERICAN 68 ML/MIN (>=60); GFR NON AFRICAN AMERICAN 59 ML/MIN (>=60); GLUCOSE, SERUM 109 MG/DL (60-99); POTASSIUM, SERUM 3.7 MMOL/L (3.5-5.3); SODIUM, SERUM 140 MMOL/L (135-148); TROPONIN I 0.04 NG/ML (<0.05)
[2017-01-13 06:13] LABS: BUN (BLOOD UREA NITROGEN) 19 MG/DL (6-23)
[2017-01-13 14:46] LABS: ASCORBIC ACID (UR NOT ORDER) NEG (NEG); BILIRUBIN, URINE NEGATIVE (NEG); KETONE, URINE NEGATIVE (NEG); LEUKOCYTE ESTERASE(NOT OR NEG (NEG); WBC (NOT ORDERED) (RFLEX) 1 (0-5)
[2017-01-14 05:05] LABS: CHLORIDE, SERUM 105 MMOL/L (96-112); CO2 (CARBON DIOXIDE) 32 MMOL/L (24-34); CREATININE 1.22 MG/DL (0.70-1.30); GFR AFRICAN AMERICAN 73 ML/MIN (>=60); GFR NON AFRICAN AMERICAN 63 ML/MIN (>=60); GLUCOSE, SERUM 100 MG/DL (60-99); SODIUM, SERUM 142 MMOL/L (135-148)
[2017-01-14 05:07] LABS: BUN (BLOOD UREA NITROGEN) 23 MG/DL (6-23)
[2017-01-14] MEDS ORDERED: NORV5 PO (11:51)
== END 2017-01-14 14:06 | disposition home or self-care (01) | DRG 305 ==
LOC: ER 13:15 → IMCU 16:14 → 2SO 01-13 13:18
PROVIDERS: Emergency Medicine; Internal Medicine; Internal Medicine Pulmonary Disease
DX: I16.0 Hypertensive urgency (principal); N17.9 Acute kidney failure, unspecified; I42.8 Other cardiomyopathies; I24.8 Other forms of acute ischemic heart disease; I42.9 Cardiomyopathy, unspecified; I73.9 Peripheral vascular disease, unspecified; R07.9 Chest pain, unspecified; I99.8 Other disorder of circulatory system; I10 Essential (primary) hypertension; G47.33 Obstructive sleep apnea (adult) (pediatric); J30.9 Allergic rhinitis, unspecified; D64.9 Anemia, unspecified; R20.0 Anesthesia of skin; F17.210 Nicotine dependence, cigarettes, uncomplicated; Z86.73 Personal history of transient ischemic attack (TIA), and cerebral infarction without residual deficits; Z88.5 Allergy status to narcotic agent; Z98.890 Other specified postprocedural states
CPT/HCPCS: 71010; 80048; 81001; 83735; 84484; 85025; 85379; 85610; 85730; 87641; 93005; 96374; 99285; A9270-GY; J0360